=== PATIENT | male | born 1945 | race Caucasian/White ===

== ENCOUNTER 2019-06-10 05:30 | Emergency (ER) | payer MEDICARE, OTHER ==
[~2019-06-10] VITALS: Ht 180.3 cm; Wt 95.7 kg
--- NOTE | 2019-06-10 05:35 | PHYS DOC ---
Past Medical History Past Medical History: Diabetes-Type II (ABENA CASEY DO) Additional Past Surgical Histo: Rhinoplasty, Arm ORIF (ABENA CASEY DO) Additional Information: Nonsmoker Alcohol Use: None Drug Use: None (ABENA CASEY DO) Adult General Chief Complaint Chief Complaint: CHEST PAIN HPI HPI 73-year-old male presents with report of shortness of air and chest pain which started this AM. Reports sensation that he has "plegmn stuck in his throat" and can't bring it up. Reports some nasal congestion for several days. Reports really isn't cough. Reports feels very short of breath. Denies nausea or vomiting. Denies known trauma. Denies leg swelling or calf tenderness. Denies fever or chills. Cardiac risk factors for DM and family history. (ABENA CASEY DO) Review of Systems Review of Systems Constitutional: Denies fever or chills Eyes: Denies redness or eye pain HENT: Reports nasal congestion; denies sore throat Respiratory: Denies cough; reports shortness of breath Cardiovascular: Reports chest pain; denies palpitations GI: Denies abdominal pain, nausea, or vomiting : Denies dysuria or hematuria Musculoskeletal: Denies back pain or joint pain Integument: Denies rash or skin lesions Neurologic: Denies headache, focal weakness or sensory changes Complete systems were reviewed and found to be within normal limits, except as documented in this note. (ABENA CASEY DO) Current Medications Current Medications Current Medications Medications (Trade) Dose Ordered Sig/Salo Start Time Stop Time Status Last Admin Dose Admin Albuterol/ Ipratropium (Duoneb) 3 ml 1X ONCE 06/10/19 06:00 06/10/19 06:01 DC 06/10/19 06:09 3 ML Aspirin (Ayo Aspirin) 325 mg 1X ONCE 06/10/19 06:00 06/10/19 06:01 DC 06/10/19 06:16 325 MG Dexamethasone Sodium Phosphate (Decadron) 10 mg 1X ONCE 06/10/19 06:00 06/10/19 06:01 DC 06/10/19 06:16 10 MG (ESEQUIEL CASTRO MD) Allergies Allergies Allergies Coded Allergies Type Severity Reaction Last Updated Verified Penicillins Allergy Intermediate Shortness of Air 06/10/19 Yes (ESEQUIEL CASTRO MD) Physical Exam Physical Exam Constitutional: Well developed, well nourished, no acute distress, non-toxic a ppearance HENT: Normocephalic, atraumatic, oropharynx moist Eyes: PERRL, EOMI, conjunctiva normal, no discharge Neck: Normal range of motion, no tenderness, supple Cardiovascular: Heart rate normal, regular rhythm Lungs & Thorax: Bilateral breath sounds clear to auscultation, no wheezing Abdomen: Soft, no tenderness Skin: Warm, dry, no erythema, no rash Extremities: No tenderness, ROM intact, no edema Neurologic: Alert and oriented X 3, normal motor function, normal sensory fun ction, no focal deficits noted Psychologic: Affect normal, judgement normal (ABENA CASEY DO) Current Patient Data Vital Signs Vital Signs Date Time Temp Pulse Resp B/P (MAP) Pulse Ox O2 Delivery O2 Flow Rate FiO2 06/10/19 06:50 68 18 119/74 (89) 98 Room Air 06/10/19 05:38 98.0 98.0 (ESEQUIEL CASTRO MD) Lab Values Laboratory Tests Test 06/10/19 05:43 White Blood Count 4.7 x10^3/uL (4.0-11.0) Red Blood Count 4.40 x10^6/uL (4.30-5.70) Hemoglobin 14.5 g/dL (13.0-17.5) Hematocrit 41.9 % (39.0-53.0) Mean Corpuscular Volume 95 fL (79-100) Mean Corpuscular Hemoglobin 33 pg (25-35) Mean Corpuscular Hemoglobin Concent 35 g/dL (31-37) Red Cell Distribution Width 12.9 % (11.5-14.5) Platelet Count 209 x10^3/uL (140-400) Neutrophils (%) (Auto) 56 % (31-73) Lymphocytes (%) (Auto) 34 % (24-48) Monocytes (%) (Auto) 8 % (0-9) Eosinophils (%) (Auto) 1 % (0-3) Basophils (%) (Auto) 0 % (0-3) Neutrophils # (Auto) 2.7 x10^3/uL (1.8-7.7) Lymphocytes # (Auto) 1.6 x10^3/uL (1.0-4.8) Monocytes # (Auto) 0.4 x10^3/uL (0.0-1.1) Eosinophils # (Auto) 0.1 x10^3/uL (0.0-0.7) Basophils # (Auto) 0.0 x10^3/uL (0.0-0.2) Prothrombin Time 12.6 SEC (11.7-14.0) Prothrombin Time INR 1.0 (0.8-1.1) Activated Partial Thromboplast Time 28 SEC (24-38) Sodium Level 142 mmol/L (136-145) Potassium Level 3.8 mmol/L (3.5-5.1) Chloride Level 105 mmol/L (98-107) Carbon Dioxide Level 28 mmol/L (21-32) Anion Gap 9 (6-14) Blood Urea Nitrogen 20 mg/dL (8-26) Creatinine 1.4 mg/dL (0.7-1.3) H Estimated GFR (Cockcroft-Gault) 50.0 BUN/Creatinine Ratio 14 (6-20) Glucose Level 168 mg/dL (70-99) H Calcium Level 9.3 mg/dL (8.5-10.1) Magnesium Level 1.9 mg/dL (1.8-2.4) Total Bilirubin 0.5 mg/dL (0.2-1.0) Aspartate Amino Transferase (AST) 21 U/L (15-37) Alanine Aminotransferase (ALT) 38 U/L (16-63) Alkaline Phosphatase 88 U/L (46-116) Creatine Kinase 71 U/L (39-308) Creatine Kinase MB (Mass) 1.6 ng/mL (0.0-3.6) Creatine Kinase MB Relative Index % (0-4) Troponin I Quantitative < 0.017 ng/mL (0.000-0.055) EI-Flt-C-Type Natriuretic Peptide 106 pg/mL (0-124) Total Protein 6.9 g/dL (6.4-8.2) Albumin 3.3 g/dL (3.4-5.0) L Albumin/Globulin Ratio 0.9 (1.0-1.7) L Lipase 225 U/L (73-393) Laboratory Tests 06/10/19 05:43 Laboratory Tests 06/10/19 05:43 (ESEQUIEL CASTRO MD) EKG EKG @0536 Sinus bradycardia at 56bpm, NO ST elevation (ABENA CASEY DO) Radiology/Procedures Radiology/Procedures [] (ABENA CASEY DO) Radiology/Procedures PROCEDURE: CHEST PA & LATERAL EXAM: PA and Lateral Views of the Chest DATE: 06/10/2019 7:28 AM INDICATION: Foreign body sensation to throat COMPARISON: No Prior FINDINGS: The heart is not enlarged. Mediastinal and hilar contours are normal. Trachea is midline. No focal parenchymal airspace opacity. No pleural effusion or pneumothorax. Degenerative changes of the spine are seen. IMPRESSION: 1. No radiographic evidence for acute cardiopulmonary process. PROCEDURE: NECK SOFT TISSUE EXAM: AP and lateral views of the neck with soft tissue detail DATE: 06/10/2019 7:28 AM CLINICAL HISTORY: COMPARISON: None FINDINGS: Views of the neck with soft tissue detail are negative for prevertebral soft tissue swelling or gas collection. The epiglottis is delicate and the aeryepiglottic folds are not thickened. Visualized airway is patent. Negative definite retained radiopaque foreign body at the visualized airway or cervical esophagus. Calcifications of the thyroid cartilage likely age-related. Carotid calcifications are seen. Multilevel degenerative changes of the spine are seen with facet and endplate degenerative change. No spondylolisthesis. IMPRESSION: 1. No definite retained radiopaque foreign body is identified at the visualized airway or cervical esophagus. 2. Multilevel degenerative changes of cervical spine. (ESEQUIEL CASTRO MD) Course & Med Decision Making Course & Med Decision Making Patient presents with report of shortness of air and chest pain. EKG stable. Labs obtained and pending. Imaging pending. Symptomatic treatment provided. Sign out given to Dr. Castro for further evaluation and final disposition. Discussed current findings and plan with patient and family, who acknowledge understanding and agreement. (ABENA CASEY DO) Course & Med Decision Making 6:30 AM: Patient care was assumed at 6 AM shift change. Patient states that over the past 24 hours, he developed difficulty breathing, as well as a sensation of "something stuck in my throat", although he denies having eaten food that got stuck or actually having had anything actually stuck in his throat. He has not had any cough, or nasal congestion. He also states he just cannot get a full breath in, and feels out of breath, although his shortness of breath is not necessarily precipitated or exacerbated by exertion. He has not had any fevers or chills. He states that prior to arrival, he did have some right shoulder pain radiating to his right neck and jaw, but did not have ANY chest discomfort. He is quite clear about the lack of chest discomfort. He has not had any nausea, vomiting, diarrhea, or abdominal pain. Deep breathing does not seem to worsen or exacerbate his symptoms. There are no alleviating, or exacerbating factors to his symptoms. EKG shows a normal sinus rhythm at a rate of 56 bpm, normal axis, normal intervals, low voltage with no acute ischemic ST/T changes present. Patient's HEART score is a 3. PHYSICAL EXAM: CONSTITUTIONAL: Well developed, well nourished HEAD: normocephalic, atraumatic EENT: PERRL, EOMI. Conjunctivae normal color, sclerae non-icteric; moist mucous membranes. Oropharynx is unremarkable. Patient is edentulous. NECK: Supple, non-tender; no meningismus. There is no stridor. There is no appreciable laryngeal tenderness to palpation. LUNGS: Lungs CTA, breathing even and unlabored. Normal air movement. HEART: Regular rate and rhythm, no murmur CHEST: No deformity; non-tender ABDOMEN: The abdomen is soft, and non-tender, no masses or bruits. EXTREM: Normal ROM; no deformity, no calf tenderness. Normal pulses palpable in all extremities. There is no pedal edema. SKIN: No rash; no diaphoresis NEURO: Alert; normal speech and cognition; CN's grossly intact; strength grossly intact without focal deficit. BACK: No CVA TTP. 8:30 AM: The patient's condition remains stable. He is feeling steadily better after breathing treatment.I had an extensive discussion with the patient about the limitations of ER cardiac evaluation in definitively ruling out acute coronary syndrome. We discussed the possibility that diabetics could have atypical symptoms with cardiac events. We discussed limitation of the ER evaluation and a singe ED troponin in r/o AMI, and the risks involved in missed diagnosis of acute coronary syndrome including or permanent debility. I recommended overnight observation for further formal cardiac evaluation to rule out acute coronary syndrome. After expressing understanding of the limitations of ER cardiac evaluation, as well as the risks of missed diagnosis, the patient declined further cardiac evaluation at this time. The patient was mentally competent, and given opportunity to ask questions about the diagnosis and recommended plan of care. I stressed the importance of outpatient follow-up, and returning to the emergency department for new or worsening symptoms, or if the patient is agreeable to undergo further cardiac evaluation. (ESEQUIEL CASTRO MD) Dragon Disclaimer Dragon Disclaimer This electronic medical record was generated, in whole or in part, using a voice recognition dictation system. (ABENA CASEY DO) Departure Departure Impression: Primary Impression: Shortness of breath Additional Impression: Chest pain Disposition: HOME, SELF-CARE Condition: STABLE Referrals: SUJATHA BOOTH MD Patient Instructions: Chest Pain (Nonspecific), Shortness of Breath Additional Instructions: Follow-up with your primary care provider in the next 1-2 days for further evaluation. Please call cardiology office, Dr. Justice, to arrange further follow-up as well. The HEART Score for CP Pts HEART Score for Chest Pain: HEART Score for Chest Pain Response (Comments) Value History Slighlty/Non-Suspicious 0 ECG Normal 0 Age > 65 2 Risk Factors 1 or 2 Risk Factors 1 Total 3 Risk Factors: Risk Factors: DM, Current or recent (<one month) smoker, HTN, HLP, family history of CAD, obesity. Risk Scores: Score 0 - 3: 2.5% MACE over next 6 weeks - Discharge Home Score 4 - 6: 20.3% MACE over next 6 weeks - Admit for Clinical Observation Score 7 - 10: 72.7% MACE over next 6 weeks - Early Invasive Strategies (ABENA CASEY DO) HEART Score for Chest Pain: HEART Score for Chest Pain Response (Comments) Value History Slighlty/Non-Suspicious 0 ECG Normal 0 Age > 65 2 Risk Factors 1 or 2 Risk Factors 1 Troponin < Normal Limit 0 Total 3 Problem Qualifiers Additional Impression: Chest pain Chest pain type: unspecified Qualified Codes: R07.9 - Chest pain, unspecified ABENA CASEY DO Jun 10, 2019 05:35 ESEQUIEL CASTRO MD Jun 10, 2019 06:37
[2019-06-10] MEDS ORDERED: IPRATRPIUM/ALBUTEROL 0.5/2.5MG 3 ML NEBU. NEB ONE (06:00)
[2019-06-10] MEDS ORDERED: DEXAMETHASONE SOD PHOS 20 MG/5 ML VIAL. IV ONE (06:00)
[2019-06-10] MEDS ORDERED: ASPIRIN 325 MG TABLET PO ONE (06:00)
[2019-06-10 06:11] LABS: BASO % 0 % (0-3); EOS # 0.1 x10^3/uL (0.0-0.7); EOS % 1 % (0-3); HEMATOCRIT 41.9 % (39.0-53.0); HEMOGLOBIN 14.5 g/dL (13.0-17.5); LYMPH # 1.6 x10^3/uL (1.0-4.8); LYMPH % 34 % (24-48); MEAN CORPUSCULAR HEMOGLOBIN 33 pg (25-35); MEAN CORPUSCULAR HGB CONC 35 g/dL (31-37); MEAN CORPUSCULAR VOLUME 95 fL (79-100); MONO # 0.4 x10^3/uL (0.0-1.1); MONO % 8 % (0-9); NEUT # 2.7 x10^3/uL (1.8-7.7); NEUT % 56 % (31-73); PLATELET COUNT 209 x10^3/uL (140-400); RED CELL DISTRIBUTION WIDTH 12.9 % (11.5-14.5); WHITE BLOOD COUNT 4.7 x10^3/uL (4.0-11.0)
[2019-06-10 06:12] LABS: PROTHROMBIN TIME PATIENT 12.6 SEC (11.7-14.0)
[2019-06-10] MEDS ORDERED: INSU100V31 SQ (06:12)
[2019-06-10] MEDS ORDERED: LACT1CAP6 PO (06:12)
[2019-06-10] MEDS ORDERED: MAGN400C PO (06:12)
[2019-06-10] MEDS ORDERED: GARL10002 PO (06:12)
[2019-06-10] MEDS ORDERED: INSU100V13 SQ (06:12)
[2019-06-10] MEDS ORDERED: TRIA1CAP3 PO (06:12)
[2019-06-10] MEDS ORDERED: ATOR40TA59 PO (06:12)
[2019-06-10 06:13] LABS: CALCIUM 9.3 mg/dL (8.5-10.1); CREATININE 1.4 mg/dL (0.7-1.3); POTASSIUM 3.8 mmol/L (3.5-5.1)
[2019-06-10 06:19] LABS: ALBUMIN 3.3 g/dL (3.4-5.0); ALBUMIN/GLOBULIN RATIO 0.9 (1.0-1.7); MAGNESIUM 1.9 mg/dL (1.8-2.4); TOTAL BILIRUBIN 0.5 mg/dL (0.2-1.0); TOTAL PROTEIN 6.9 g/dL (6.4-8.2)
[2019-06-10 06:26] LABS: CREATINE KINASE 71 U/L (39-308)
[2019-06-10 06:50] VITALS: BP 119/74
--- NOTE | 2019-06-10 07:23 | EKG ---
[facility] [address] [place] [address] Test Date: 2019-06-10 Test Time: 05:36:47 Pat Name: RENETTA CARDENAS Department: Room: Gender: M Manager Online: : 1945 Requested By: ABENA CASEY Order Number: [id number] Reading MD: Measurements Intervals [place] Rate: 56 P: 0 [place]: 200 QRS: 36 QRSD: 84 T: 47 QT: 394 QTc: 383 Interpretive Statements SINUS RHYTHM QRS(T) CONTOUR ABNORMALITY CONSIDER ANTEROSEPTAL MYOCARDIAL DAMAGE POSSIBLY ABNORMAL ECG RI6.01 Unconfirmed report No previous ECG available for comparison
--- NOTE | 2019-06-10 07:57 | RAD ---
EXAM: PA and Lateral Views of the Chest DATE: 06/10/2019 7:28 AM INDICATION: Foreign body sensation to throat COMPARISON: No Prior FINDINGS: The heart is not enlarged. Mediastinal and hilar contours are normal. Trachea is midline. No focal parenchymal airspace opacity. No pleural effusion or pneumothorax. Degenerative changes of the spine are seen. IMPRESSION: 1. No radiographic evidence for acute cardiopulmonary process. Electronically signed by: Soham Robertson MD (06/10/2019 7:54 AM) [facility]
--- NOTE | 2019-06-10 08:12 | RAD ---
EXAM: AP and lateral views of the neck with soft tissue detail DATE: 06/10/2019 7:28 AM CLINICAL HISTORY: COMPARISON: None FINDINGS: Views of the neck with soft tissue detail are negative for prevertebral soft tissue swelling or gas collection. The epiglottis is delicate and the aeryepiglottic folds are not thickened. Visualized airway is patent. Negative definite retained radiopaque foreign body at the visualized airway or cervical esophagus. Calcifications of the thyroid cartilage likely age-related. Carotid calcifications are seen. Multilevel degenerative changes of the spine are seen with facet and endplate degenerative change. No spondylolisthesis. IMPRESSION: 1. No definite retained radiopaque foreign body is identified at the visualized airway or cervical esophagus. 2. Multilevel degenerative changes of cervical spine. Electronically signed by: Soham Robertson MD (06/10/2019 8:09 AM) [facility]
== END 2019-06-10 08:57 | disposition home or self-care (01) ==
LOC: ER 05:30
DX: R06.02 Shortness of breath (principal); R07.89 Other chest pain; R09.81 Nasal congestion; E11.9 Type 2 diabetes mellitus without complications; Z79.82 Long term (current) use of aspirin; Z88.0 Allergy status to penicillin
CPT/HCPCS: 36415; 70360; 71046; 80053; 82553; 83690; 83735; 83880; 84484; 85025; 85610; 85730; 93005; 94640; 96374; 99285; J1100; J7620

== ENCOUNTER → 2019-07-24 | Outpatient (CLI) | payer MEDICARE, OTHER ==
[~2019-07-24] MED LIST: ATOR40TA59 PO; GARL10002 PO; INSU100V13 SQ; INSU100V31 SQ; LACT1CAP6 PO; MAGN400C PO; TRIA1CAP3 PO
--- NOTE | 2019-07-26 13:53 | RAD ---
MR#: [id number] Date of Study: 07/24/2019 Ordering Physician: RYLAN MILNER, Referring Physician: RYLAN MILNER, Tech: Berto Wilson MBA, RDMS, RVT, RDCS, RTR APPROVED REPORT Patient Location: OUT-PATIENT Indications ERECTILE DYSFUNCTION Duplex Results A/PTransverseLongitudinal Mid Aorta 2.8cm1.8cm Distal Aorta 2.7cm1.1cm Rt. Common Iliac Artery2.5cm Lt. Common Iliac Artery 2.6cm Findings Grayscale images of the proximal abdominal aorta are limited. The mid and distal abdominal aorta appe ar to be calcified without any focal obstruction on cali scale images. The images are limited due to body habitus. No obvious aneurysm is noted. The measurements are as noted above. The bilateral common iliacs appear mildly aneurysmal but this is likely related to technique and measurement. Critical Notification Critical Value: No <Conclusion> 1. Limited study but no evidence of abdominal aortic aneurysm Signed by : Rylan Milner, Electronically Approved : 07/25/2019 07:48:37
--- NOTE | 2019-07-26 13:53 | RAD ---
MR#: [id number] Date of Study: 07/24/2019 Ordering Physician: RYLAN MILNER, Referring Physician: RYLAN MILNER, Tech: Berto Wilson MBA, RDMS, RVT, RDCS, RTR APPROVED REPORT Patient Location: OUT-PATIENT Indications ERECTILE DYSFUNCTION VELOCITY AND DOPPLER WAVEFORM ANALYSIS RIGHT cm/secWaveformSeverity LEFT cm/secWaveform Severity dCFA 109.0TriphasicdCFA 97.0Triphasic Prof Fem Art. 78.0TriphasicProf Fem Art. 5.0Triphasic Fem Art Prox. 92.0TriphasicFem Art Prox. 130.0Triphasic Fem Art Mid. 122.0TriphasicFem Art Mid. 102.0Triphasic Fem Art Dist. 98.0TriphasicFem Art Dist. 86.0Triphasic Pop Art(Fossa) 68.0TriphasicPop Art(AK) 89.0Triphasic CLINICAL LABORATORY AIDE Prox. 82.0TriphasicPTA Prox. 55.0Triphasic CLINICAL LABORATORY AIDE Dist. 97.0TriphasicPTA Dist. 140.0Triphasic Per Art Mid. 54.0BiphasicPer Art Mid. 114.0Triphasic ARETHA Prox. 40.0TriphasicATA Prox. 58.0Biphasic DPA 50TriphasicDPA 28Monophasic Image Findings Grayscale images of the bilateral lower extremity arterial vessels reveals mild diffuse irregularitie s without any focal high-grade obstruction. Color Doppler does not reveal any velocity acceleration Spectral waveforms are mostly triphasic and biphasic with three-vessel runoff below the knee bilatera lly. Probable moderate left peroneal and posterior tibial disease of less than 50% but otherwise no f ocal obstructive disease. No significant inflow disease at the level of the CUSTOMER SUPPORT ASSOCIATE. Critical Notification Critical Value: No <Conclusion> 1. No high grade focal disease bilaterally. Signed by : Rylan Milner, Electronically Approved : 07/25/2019 07:41:01
== END | disposition home or self-care (01) ==
LOC: US 11:51
PROVIDERS: ATTEND Internal Medicine Cardiovascular Disease
DX: N52.9 Male erectile dysfunction, unspecified (principal); I10 Essential (primary) hypertension
CPT/HCPCS: 76770; 93925

== ENCOUNTER 2019-11-30 20:06 | Inpatient (IN) | payer MEDICARE, OTHER ==
[~2019-11-30] VITALS: Ht 180.3 cm; Wt 105.2 kg
[2019-11-30] MEDS ORDERED: FAMOTIDINE 20 MG/2 ML VIAL IVP ONE (21:00)
[2019-11-30] MEDS ORDERED: ONDANSETRON PF 4 MG/2 ML VIAL. IVP ONE (21:00)
[2019-11-30 21:02] LABS: BASO % 0 % (0-3); EOS % 0 % (0-3); HEMATOCRIT 39.2 % (39.0-53.0); HEMOGLOBIN 13.3 g/dL (13.0-17.5); LYMPH # 0.3 x10^3/uL (1.0-4.8); LYMPH % 5 % (24-48); MEAN CORPUSCULAR HEMOGLOBIN 32 pg (25-35); MEAN CORPUSCULAR HGB CONC 34 g/dL (31-37); MEAN CORPUSCULAR VOLUME 94 fL (79-100); MONO % 1 % (0-9); NEUT # 4.5 x10^3/uL (1.8-7.7); NEUT % 94 % (31-73); PLATELET COUNT 146 x10^3/uL (140-400); RED BLOOD COUNT 4.15 x10^6/uL (4.30-5.70); RED CELL DISTRIBUTION WIDTH 12.9 % (11.5-14.5); WHITE BLOOD COUNT 4.8 x10^3/uL (4.0-11.0)
[2019-11-30 21:16] LABS: CALCIUM 8.8 mg/dL (8.5-10.1); CREATININE 1.1 mg/dL (0.7-1.3); GFR 65.8
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
[2019-11-30 21:22] LABS: ALBUMIN 3.2 g/dL (3.4-5.0); ALBUMIN/GLOBULIN RATIO 1.1 (1.0-1.7); TOTAL BILIRUBIN 1.1 mg/dL (0.2-1.0); TOTAL PROTEIN 6.2 g/dL (6.4-8.2)
--- NOTE | 2019-11-30 21:23 | RAD ---
PORTABLE CHEST 1V INDICATION: Altered mental status. COMPARISON STUDY: 06/10/2019. FINDINGS: Lungs: Normal lung volume. No pulmonary mass or consolidation. The tracheobronchial tree and hilar structures are normal. Pleura: No pleural effusion or pneumothorax. Heart and Mediastinum: The cardiomediastinal silhouette is normal. The great vessels of the thorax are normal. IMPRESSION: No acute cardiopulmonary process. Electronically signed by: Lisandro Lawrence MD (11/30/2019 9:21 PM) [facility]
[2019-11-30 21:25] LABS: % BANDS 12 % (0-9); % LYMPHS 7 % (24-48); % MONOS 1 % (0-10); % SEGS 80 % (35-66)
[2019-11-30 21:26] LABS: PLT ESTIMATE ADEQUATE (ADEQUATE); TOXIC VACUOLATION PRESENT
[2019-11-30] MEDS: IV NORMAL SALINE 1000ML BAG 1,000 ML IV SCH ×2 (21:30→23:00)
[2019-11-30 21:35] LABS: CREATINE KINASE 74 U/L (39-308)
[2019-11-30] MEDS ORDERED: ACETAMINOPHEN 325 MG TABLET. PO PRN (22:00)
[2019-11-30] MEDS ORDERED: ONDANSETRON PF 4 MG/2 ML VIAL. IV PRN (22:00)
[2019-11-30 22:02] LABS: INFLUENZA A PATIENT NEGATIVE (NEGATIVE); INFLUENZA B PATIENT NEGATIVE (NEGATIVE)
[2019-11-30] MEDS ORDERED: IV NORMAL SALINE 1000ML BAG 1,000 ML IV ONE (22:30)
[2019-11-30] MEDS ORDERED: CONTRAST GIVEN. MC PRN (23:30)
[2019-11-30] MEDS ORDERED: IOHEXOL 300 MG/ML 100ML VIAL. IV ONE (23:45)
[2019-12-01] VITALS (7 sets, daily range): BP systolic 91–148; BP diastolic 56–83
--- NOTE | 2019-12-01 00:03 | RAD ---
CT SCAN OF THE ABDOMEN AND PELVIS WITH IV CONTRAST. History: Abdominal pain Comparison:None. Procedure: Contiguous axial images of the abdomen and pelvis were performed after the administration of 75 cc of Omni 300 IV contrast. Oral contrast: No. Findings: Liver: Unremarkable Spleen: Unremarkable Pancreas: Unremarkable Adrenal Glands: Unremarkable Kidneys: There is a 4 similar simple cyst arising posteriorly from the mid right kidney. There is no mass or lymphadenopathy. There is no free air. There is no free fluid. The urinary bladder not fully distended and demonstrates mild wall thickening. The appendix is normal. There is bilateral fat-containing inguinal canal hernias. There is fat within the inguinal canal hernias. Impression: 1. Mild wall thickening of the urinary bladder could be secondary to hypertrophy. 2. No acute findings. PQRS Compliance Statement: One or more of the following individualized dose reduction techniques were utilized for this examination: 1. Automated exposure control 2. Adjustment of the mA and/or kV according to patient size 3. Use of iterative reconstruction technique Electronically signed by: Nikolas Tomas III, MD (12/01/2019 12:00 AM) [id number]
[2019-12-01] MEDS: IV NORMAL SALINE 1000ML BAG 1,000 ML IV SCH (04:00)
[2019-12-01 05:16] LABS: BASO % 0 % (0-3); EOS % 0 % (0-3); HEMATOCRIT 36.4 % (39.0-53.0); HEMOGLOBIN 12.1 g/dL (13.0-17.5); LYMPH # 0.3 x10^3/uL (1.0-4.8); LYMPH % 3 % (24-48); MEAN CORPUSCULAR HEMOGLOBIN 32 pg (25-35); MEAN CORPUSCULAR HGB CONC 33 g/dL (31-37); MEAN CORPUSCULAR VOLUME 97 fL (79-100); MONO # 0.7 x10^3/uL (0.0-1.1); MONO % 6 % (0-9); NEUT # 11.4 x10^3/uL (1.8-7.7); NEUT % 92 % (31-73); PLATELET COUNT 145 x10^3/uL (140-400); RED BLOOD COUNT 3.76 x10^6/uL (4.30-5.70); RED CELL DISTRIBUTION WIDTH 13.2 % (11.5-14.5); WHITE BLOOD COUNT 12.5 x10^3/uL (4.0-11.0)
[2019-12-01 05:23] LABS: CREATININE 1.3 mg/dL (0.7-1.3); GFR 54.3; POTASSIUM 4.2 mmol/L (3.5-5.1)
[2019-12-01] MEDS ORDERED: TADA5TAB PO (05:41)
[2019-12-01] MEDS ORDERED: LISI-338 PO (05:41)
[2019-12-01] MEDS ORDERED: LIRA0.6P2 SQ (05:41)
[2019-12-01] MEDS ORDERED: CLOT15CR4 TP (05:41)
[2019-12-01] MEDS ORDERED: TIMO10DR5 EACHEYE (05:41)
[2019-12-01] MEDS ORDERED: TRIA15OI TP (05:41)
[2019-12-01] MEDS ORDERED: ATOR20TA58 PO (05:41)
[2019-12-01] MEDS ORDERED: CALC500T30 PO (05:41)
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
[2019-12-01] MEDS ORDERED: MAGNESIUM SULFATE 2GM 50 ML IV ONE (11:30)
--- NOTE | 2019-12-01 12:27 | NUR ---
Positive Blood culture: Gram Negative Rods. 2 sets drawn. 2 of 4 Positive. Both Anaerobic bottles Positive..
[2019-12-01] MEDS ORDERED: VANCOMYCIN PER PHARMACY MC PRN (12:45)
[2019-12-01] MEDS ORDERED: VANCOMYCIN 2 GM in IV NORMAL SALINE 500ML BAG 500 ML IV ONE (13:00)
--- NOTE | 2019-12-01 13:11 | PDOC ---
Infectious Disease Note Vital Sign Vital Signs Vital Signs Date Time Temp Pulse Resp B/P (MAP) Pulse Ox O2 Delivery O2 Flow Rate FiO2 12/01/19 11:00 97.9 80 19 138/68 (91) 96 Room Air 97.9 Labs Lab Laboratory Tests Test 11/30/19 20:16 11/30/19 21:25 12/01/19 00:30 12/01/19 04:00 White Blood Count 4.8 x10^3/uL (4.0-11.0) 12.5 x10^3/uL (4.0-11.0) Red Blood Count 4.15 x10^6/uL (4.30-5.70) 3.76 x10^6/uL (4.30-5.70) Hemoglobin 13.3 g/dL (13.0-17.5) 12.1 g/dL (13.0-17.5) Hematocrit 39.2 % (39.0-53.0) 36.4 % (39.0-53.0) Mean Corpuscular Volume 94 fL (79-100) 97 fL (79-100) Mean Corpuscular Hemoglobin 32 pg (25-35) 32 pg (25-35) Mean Corpuscular Hemoglobin Concent 34 g/dL (31-37) 33 g/dL (31-37) Red Cell Distribution Width 12.9 % (11.5-14.5) 13.2 % (11.5-14.5) Platelet Count 146 x10^3/uL (140-400) 145 x10^3/uL (140-400) Neutrophils (%) (Auto) 94 % (31-73) 92 % (31-73) Lymphocytes (%) (Auto) 5 % (24-48) 3 % (24-48) Monocytes (%) (Auto) 1 % (0-9) 6 % (0-9) Eosinophils (%) (Auto) 0 % (0-3) 0 % (0-3) Basophils (%) (Auto) 0 % (0-3) 0 % (0-3) Neutrophils # (Auto) 4.5 x10^3/uL (1.8-7.7) 11.4 x10^3/uL (1.8-7.7) Lymphocytes # (Auto) 0.3 x10^3/uL (1.0-4.8) 0.3 x10^3/uL (1.0-4.8) Monocytes # (Auto) 0.0 x10^3/uL (0.0-1.1) 0.7 x10^3/uL (0.0-1.1) Eosinophils # (Auto) 0.0 x10^3/uL (0.0-0.7) 0.0 x10^3/uL (0.0-0.7) Basophils # (Auto) 0.0 x10^3/uL (0.0-0.2) 0.0 x10^3/uL (0.0-0.2) Segmented Neutrophils % 80 % (35-66) Band Neutrophils % 12 % (0-9) Lymphocytes % 7 % (24-48) Monocytes % 1 % (0-10) Toxic Vacuolation Present Platelet Estimate Adequate (ADEQUATE) Prothrombin Time 14.0 SEC (11.7-14.0) Prothromb Time International Ratio 1.1 (0.8-1.1) Activated Partial Thromboplast Time 25 SEC (24-38) Sodium Level 139 mmol/L (136-145) 140 mmol/L (136-145) Potassium Level 4.0 mmol/L (3.5-5.1) 4.2 mmol/L (3.5-5.1) Chloride Level 104 mmol/L (98-107) 106 mmol/L (98-107) Carbon Dioxide Level 25 mmol/L (21-32) 24 mmol/L (21-32) Anion Gap 10 (6-14) 10 (6-14) Blood Urea Nitrogen 16 mg/dL (8-26) 19 mg/dL (8-26) Creatinine 1.1 mg/dL (0.7-1.3) 1.3 mg/dL (0.7-1.3) Estimated GFR (Cockcroft-Gault) 65.8 54.3 BUN/Creatinine Ratio 15 (6-20) Glucose Level 192 mg/dL (70-99) 215 mg/dL (70-99) Lactic Acid Level 2.2 mmol/L (0.4-2.0) 2.6 mmol/L (0.4-2.0) Calcium Level 8.8 mg/dL (8.5-10.1) 8.0 mg/dL (8.5-10.1) Magnesium Level 1.6 mg/dL (1.8-2.4) Total Bilirubin 1.1 mg/dL (0.2-1.0) Aspartate Amino Transf (AST/SGOT) 19 U/L (15-37) Alanine Aminotransferase (ALT/SGPT) 25 U/L (16-63) Alkaline Phosphatase 97 U/L (46-116) Creatine Kinase 74 U/L (39-308) Creatine Kinase MB (Mass) 0.8 ng/mL (0.0-3.6) Creatine Kinase MB Relative Index % (0-4) Troponin I Quantitative < 0.017 ng/mL (0.000-0.055) IJ-Upu-B-Type Natriuretic Peptide 259 pg/mL (0-124) Total Protein 6.2 g/dL (6.4-8.2) Albumin 3.2 g/dL (3.4-5.0) Albumin/Globulin Ratio 1.1 (1.0-1.7) Lipase 86 U/L (73-393) Procalcitonin 0.45 ng/mL (0.00-0.10) 9.80 ng/mL (0.00-0.10) Thyroid Stimulating Hormone (TSH) 0.664 uIU/mL (0.358-3.74) Influenza Type A Antigen Negative (NEGATIVE) Influenza Type B Antigen Negative (NEGATIVE) Test 12/01/19 07:32 12/01/19 11:30 12/01/19 11:52 Glucose (Fingerstick) 154 mg/dL (70-99) 173 mg/dL (70-99) Lactic Acid Level 1.2 mmol/L (0.4-2.0) Micro Microbiology 11/30/19 Blood Culture - Final, Complete Objective Assessment GNR sepsis POA Abdominal pain. Leukocytosis Abx allergy PCN. unknown reaction Lactic acidosis Acute encephalopathy - improved Diabetes II Morbid obesity Hypertension Skin cancer Cat exposure Plan Plan of Care d/c vancomycin change levaquin to Cefepime Await GNR ID and susceptibilities Repeat CBC in am UA been ordered D/w nursing Thank you Attending Co-Sign The patient was seen and interviewed as well as examined at the bedside. The chart was reviewed. The case was discussed. Agree with the plan of care. ONIEL LILLY APRN Dec 01, 2019 13:11 NANCY MEZA MD Dec 01, 2019 13:18
[2019-12-01] MEDS: CEFEPIME HCL IV Push 1 GM VIAL. IVP SCH ×2 (13:30→21:12)
--- NOTE | 2019-12-01 13:52 | CONS ---
DATE OF CONSULTATION: 12/01/2019 REFERRING PHYSICIAN: Bakari Douglas MD REASON FOR CONSULTATION: Positive blood cultures. HISTORY OF PRESENT ILLNESS: This patient is a 74-year-old male with a past medical history of morbid obesity, skin cancer, and type 2 diabetes, who presented to the ER with abdominal pain, nausea, and altered mental status. He recalls feeling suddenly hot, could not walk and his glucose level was found to be low. On arrival to the ER, he was afebrile with a normal WBC count. Lactic acid was 2.2 and glucose 192. Abdominal/pelvis CT showed mild wall thickening of the urinary bladder, could be secondary to hypertrophy. No acute findings. Urinalysis has been ordered. Blood cultures have since returned with Gram-negative rods in 2 of 4 bottles, hence ID consult. The patient says he has a history of skin cancer and had a few lesions, burn on his scalp area recently. He denies fevers or chills. He has some nasal congestion. Denies headache, sore throat. Denies cough, shortness of air, or chest discomfort. He has been a little bit constipated, but had a bowel movement earlier. He denies dysuria, frequency, or straining. He is currently living with his girlfriend. He has had a number of cats and is now down to 7. He says they have licked his wound. He denies antibiotic use or hospitalizations within the last several months. PAST MEDICAL HISTORY: Diabetes type 2, skin cancer, hypertension, morbid obesity, hyperlipidemia. PAST SURGICAL HISTORY: Rhinoplasty and open reduction and internal fixation of arm. FAMILY HISTORY: Obesity. ALLERGIES: PENICILLIN, REACTION UNKNOWN. HE DOES NOT RECALL HAVING TAKEN AMOXICILLIN, AUGMENTIN, OR CEPHALEXIN. MEDICATIONS: Vancomycin, levofloxacin, magnesium sulfate, Pepcid, ondansetron, timolol, acetaminophen, topical triamcinolone. REVIEW OF SYSTEMS: Per HPI, otherwise all other review of systems is negative. PHYSICAL EXAMINATION: VITAL SIGNS: Temperature is 97.9, blood pressure 138/68, heart rate 80, respiratory rate 19, pulse oximetry is 96%. BMI 32. GENERAL: The patient is propped up in bed, alert, in no apparent distress. HEENT: Pupils equally round and reactive. Normal conjunctivae. Oropharynx pink and moist. NECK: Supple. LUNGS: Clear to auscultation. HEART: S1, S2. ABDOMEN: Morbidly obese, soft, nontender with bowel sounds present. EXTREMITIES: No gross edema or cyanosis. SKIN: Warm to touch without signs of rash. NEUROLOGIC: Alert and oriented x 3. LABORATORY DATA: Today's WBC 12.5 from 4.8 on admission, hemoglobin 12.1, platelets 145,000. Creatinine is 1.3, BUN 19. Electrolytes unremarkable. Glucose 215. Lactic acid 1.2 from 2.6. Total bilirubin 1.1. AST 19, ALT 25. Troponin less than 0.017, albumin 3.2. Procalcitonin 0.45. TSH 0.664. Influenza screen negative. Abdominal/pelvis CT per HPI. Chest x-ray showed no acute cardiopulmonary process. Head CT showed mild atrophy and chronic microangiopathic white matter change. Blood cultures show Gram-negative rods, 2 of 4 bottles. ASSESSMENT: 1. Gram-negative francoise sepsis present on admission. 2. Abdominal pain. 3. Leukocytosis. 4. Antibiotic allergy to penicillin, reaction unknown. 5. Lactic acidosis. 6. Acute encephalopathy, improved. 7. Diabetes type 2. 8. Morbid obesity. 9. Hypertension. 10. Skin cancer. 11. Cat exposure. PLAN: Recommend changing levofloxacin to cefepime and discontinue the vancomycin. The source of the Gram-negative rods may be from urine or possibly from cat exposure for which he often scratched. Urinalysis has been ordered. Repeat CBC in the morning. We will continue to follow along. Thank you, Dr. Douglas, for asking us to participate in this patient's care. Should you have further questions or concerns, please call. The patient is seen and examined and plan of care implemented by Dr. Jim Meza. JIM MEZA MD DR: RAMONA/javi JOB#: [id number] / [id number]
[2019-12-01] MEDS: TIMOLOL 0.5% OPHTH SOLUTION 5ML BOTTLE. OU SCH (14:03)
[2019-12-01] MEDS: TRIAMCINOLONE ACETONIDE 0.1% TOPICAL OINTMENT 15GM TUBE. TP SCH ×2 (14:04→21:11)
[2019-12-01] MEDS: MAGNESIUM OXIDE 400 MG TABLET PO SCH (14:04)
--- NOTE | 2019-12-01 15:02 | EKG ---
[facility] [address] [place] [address] Test Date: 2019-11-30 Test Time: 20:15:44 Pat Name: RENETTA CARDENAS Department: Room: Gender: M Home Manager: : [id number] Requested By: RODOLFO ORTIZ Order Number: [id number] Reading MD: Measurements Intervals [place] Rate: 117 P: -30 MN: 138 QRS: 23 QRSD: 92 T: 24 QT: 310 QTc: 436 Interpretive Statements SINUS TACHYCARDIA QRS(T) CONTOUR ABNORMALITY CANNOT RULE OUT ANTEROSEPTAL MYOCARDIAL DAMAGE BORDERLINE ECG No previous ECG available for comparison
--- NOTE | 2019-12-01 16:40 | NUR ---
Pt reported to staff that he had a fall in the bathroom of his room. Pt states he put on the call light and waited a long time. Pt ambulated to br unsupervised, urinated on his clothes on the way to the br. Pt went to sit on the stool and "missed it". States he fell to his right knee, hit the right side of his head against the door. On initial assessment, pt stated he was fine. On reassessment, pt states his neck hurts. RN maintenance and custodian supervisor notified. Dr. Douglas notified, order for tylenol po 650 mg tab q6hrs for pain. May use heating pad as needed. Pt states he did not want either at the time. Will continue to monitor.
[2019-12-01] MEDS: INSULIN LISPRO 300 UNITS/3 ML VIAL. SQ SCH (17:00)
[2019-12-01] MEDS ORDERED: DEXTROSE 50% 25 GM / 50ML DISP.SYRIN. IV PRN (17:00)
[2019-12-01] MEDS ORDERED: IV DEXTROSE 5% 250 ML BAG. IV PRN (17:00)
[2019-12-01] MEDS: LACTOBACILLUS RHAMNOSUS GG 1 CAPSULE. PO SCH (21:12)
[2019-12-01] MEDS: INSULIN GLARGINE SYRINGE. SQ SCH (21:22)
[2019-12-02] MEDS: ACETAMINOPHEN 325 MG TABLET. PO PRN (00:53)
[2019-12-02 03:00] VITALS: BP 120/66
[2019-12-02 05:25] LABS: BASO % 0 % (0-3); EOS % 0 % (0-3); HEMATOCRIT 35.7 % (39.0-53.0); HEMOGLOBIN 12.1 g/dL (13.0-17.5); LYMPH # 1.1 x10^3/uL (1.0-4.8); LYMPH % 13 % (24-48); MEAN CORPUSCULAR HEMOGLOBIN 32 pg (25-35); MEAN CORPUSCULAR HGB CONC 34 g/dL (31-37); MEAN CORPUSCULAR VOLUME 95 fL (79-100); MONO # 0.7 x10^3/uL (0.0-1.1); MONO % 9 % (0-9); NEUT # 6.8 x10^3/uL (1.8-7.7); NEUT % 78 % (31-73); PLATELET COUNT 121 x10^3/uL (140-400); RED BLOOD COUNT 3.75 x10^6/uL (4.30-5.70); RED CELL DISTRIBUTION WIDTH 13.2 % (11.5-14.5); WHITE BLOOD COUNT 8.7 x10^3/uL (4.0-11.0)
[2019-12-02 07:00] VITALS: BP 133/74
[2019-12-02] MEDS: INSULIN LISPRO 300 UNITS/3 ML VIAL. SQ SCH ×3 (07:56→17:13)
[2019-12-02] MEDS: TRIAMCINOLONE ACETONIDE 0.1% TOPICAL OINTMENT 15GM TUBE. TP SCH ×2 (08:33→21:00)
[2019-12-02] MEDS: LACTOBACILLUS RHAMNOSUS GG 1 CAPSULE. PO SCH ×2 (08:33→20:56)
[2019-12-02] MEDS: MAGNESIUM OXIDE 400 MG TABLET PO SCH (08:33)
--- NOTE | 2019-12-02 09:33 | PDOC ---
Infectious Disease Note Subjective: Subjective pt without complaints Vital Signs: Vital Signs Vital Signs Date Time Temp Pulse Resp B/P (MAP) Pulse Ox O2 Delivery O2 Flow Rate FiO2 12/02/19 07:00 98.1 67 17 133/74 (93) 95 Room Air 98.1 Physical Exam: PHYSICAL EXAM GENERAL: The patient is propped up in bed, alert, in no apparent distress. HEENT: Pupils equally round and reactive. Normal conjunctivae. Oropharynx pink and moist. NECK: Supple. LUNGS: Clear to auscultation. HEART: S1, S2. ABDOMEN: Morbidly obese, soft, nontender with bowel sounds present. EXTREMITIES: No gross edema or cyanosis. SKIN: Warm to touch without signs of rash.scalp lesions stable NEUROLOGIC: Alert and oriented x 3. Medications: Inpatient Meds: Current Medications Medications (Trade) Dose Ordered Sig/Salo Start Time Stop Time Status Last Admin Dose Admin Acetaminophen (Tylenol) 650 mg PRN Q6HRS PRN 12/02/19 00:45 12/02/19 00:53 650 MG Cefepime HCl (Maxipime) 1 gm Q12HR 12/01/19 13:30 12/01/19 21:12 1 GM Dextrose (Dextrose 50%-Water Syringe) 12.5 gm PRN Q15MIN PRN 12/01/19 17:00 Dextrose (Iv Dextrose 5%) 250 ml PRN Q15MIN PRN 12/01/19 17:00 Famotidine (Pepcid Vial) 20 mg 1X ONCE 11/30/19 21:00 11/30/19 21:01 DC 11/30/19 21:30 20 MG Info (CONTRAST GIVEN -- Rx MONITORING) 1 each PRN DAILY PRN 11/30/19 23:30 12/02/19 23:29 Insulin Glargine (Lantus Syringe) 24 unit QHS 12/01/19 21:00 12/01/19 21:22 24 UNIT Insulin Human Lispro (HumaLOG) 0-9 UNITS TIDWMEALS 12/01/19 17:00 Iohexol (Omnipaque 300 Mg/ml) 75 ml 1X ONCE 11/30/19 23:45 11/30/19 23:46 DC 11/30/19 23:52 75 ML Lactobacillus Rhamnosus (Culturelle) 1 cap BID 12/01/19 21:00 12/02/19 08:33 1 CAP Levofloxacin/ Dextrose 100 ml @ 100 mls/hr Q24H 12/01/19 23:00 12/01/19 13:11 DC Magnesium Oxide (Magnesium Oxide) 400 mg DAILY 12/01/19 11:00 12/02/19 08:33 400 MG Magnesium Sulfate 50 ml @ 25 mls/hr 1X ONCE 12/01/19 11:30 12/01/19 13:29 DC 12/01/19 11:30 25 MLS/HR Ondansetron HCl (Zofran) 4 mg PRN Q8HRS PRN 11/30/19 22:00 12/01/19 21:59 DC Sodium Chloride 1,000 ml @ 125 mls/hr 1X ONCE 11/30/19 22:30 12/01/19 06:29 DC 11/30/19 22:30 125 MLS/HR Timolol Maleate (Timoptic 0.5% [facility]) 1 drop DAILY 12/01/19 12:00 12/01/19 14:03 1 DROP Triamcinolone Acetonide (Kenalog 0.1%) 1 thuy BID 12/01/19 12:00 12/02/19 08:33 1 THUY Vancomycin HCl (Vanco Per Pharmacy) 1 each PRN DAILY PRN 12/01/19 12:45 12/01/19 13:04 DC Vancomycin HCl 2 gm/Sodium Chloride 500 ml @ 250 mls/hr 1X ONCE 12/01/19 13:00 12/01/19 13:06 DC Labs: Lab Laboratory Tests Test 12/01/19 11:30 12/01/19 11:52 12/01/19 16:22 12/01/19 20:47 Lactic Acid Level 1.2 mmol/L (0.4-2.0) Glucose (Fingerstick) 173 mg/dL (70-99) 152 mg/dL (70-99) 201 mg/dL (70-99) Test 12/02/19 04:15 White Blood Count 8.7 x10^3/uL (4.0-11.0) Red Blood Count 3.75 x10^6/uL (4.30-5.70) Hemoglobin 12.1 g/dL (13.0-17.5) Hematocrit 35.7 % (39.0-53.0) Mean Corpuscular Volume 95 fL (79-100) Mean Corpuscular Hemoglobin 32 pg (25-35) Mean Corpuscular Hemoglobin Concent 34 g/dL (31-37) Red Cell Distribution Width 13.2 % (11.5-14.5) Platelet Count 121 x10^3/uL (140-400) Neutrophils (%) (Auto) 78 % (31-73) Lymphocytes (%) (Auto) 13 % (24-48) Monocytes (%) (Auto) 9 % (0-9) Eosinophils (%) (Auto) 0 % (0-3) Basophils (%) (Auto) 0 % (0-3) Neutrophils # (Auto) 6.8 x10^3/uL (1.8-7.7) Lymphocytes # (Auto) 1.1 x10^3/uL (1.0-4.8) Monocytes # (Auto) 0.7 x10^3/uL (0.0-1.1) Eosinophils # (Auto) 0.0 x10^3/uL (0.0-0.7) Basophils # (Auto) 0.0 x10^3/uL (0.0-0.2) Objective: Assessment: 1. Gram-negative francoise sepsis present on admission.ID source pending 2. Abdominal pain. 3. Leukocytosis.improving 4. Antibiotic allergy to penicillin, reaction unknown. 5. Lactic acidosis. 6. Acute encephalopathy, improved. 7. Diabetes type 2. 8. Morbid obesity. 9. Hypertension. 10. Skin cancer. 11. Cat exposure. 2. Thrombocytopenia Plan: Plan of Care Continue Cefepime Await GNR ID and susceptibilities in BC UA with uc if not sent already F/U repeat BC from am d/w KENDRA MORAN MD Dec 02, 2019 09:33
[2019-12-02] MEDS: TIMOLOL 0.5% OPHTH SOLUTION 5ML BOTTLE. OU SCH (09:47)
[2019-12-02] MEDS: CEFEPIME HCL IV Push 1 GM VIAL. IVP SCH ×2 (09:47→20:56)
[2019-12-02 10:50] VITALS: BP 135/68
[2019-12-02 11:32] LABS: BILIRUBIN,URINE NEGATIVE (NEG); CLARITY,URINE CLEAR; COLOR,URINE YELLOW; NITRITE,URINE NEGATIVE (NEG); PROTEIN,URINE NEGATIVE (NEG-TRACE); UROBILINOGEN,URINE 0.2 mg/dL (0.2 mg/dL)
[2019-12-02 11:43] LABS: BACTERIA,URINE FEW /HPF (0-FEW); RBC,URINE 0 /HPF (0-2); SQUAMOUS EPITHELIAL CELL,UR OCC /LPF
[2019-12-02 11:49] LABS: BARBITURATES NEG (NEG); BENZODIAZEPINES NEG (NEG); CANNABINOIDS NEG (NEG); COCAINE NEG (NEG); METHADONE NEG (NEG); OPIATES NEG (NEG); PHENCYCLIDINE NEG (NEG)
[2019-12-02 11:50] LABS: AMPHETAMINE/METHAMPHETAMINE NEG (NEG)
--- NOTE | 2019-12-02 13:36 | NUR ---
SW following. Discussed with RN, pt is from home with girlfriend. Currently on IV cefepime. PT/OT ordered, urine sent to check for UTI. SW will continue to follow.
--- NOTE | 2019-12-02 14:00 | PDOC ---
PROGRESS NOTES Chief Complaint Chief Complaint ASSESSMENT Gram-negative francoise sepsis present on admission Leukocytosis Antibiotic allergy to penicillin, reaction unknown. Lactic acidosis. Acute encephalopathy, RESOLVing Diabetes type 2. Morbid obesity. Hypertension. Skin cancer. Cat exposure. Thrombocytopenia PLAN continue cefepime apprec ID follow cultures follow repeat cultures dvt ppx prn ativan for agitation History of Present Illness History of Present Illness agitated overnight and given ativan and haldol. VSS Vitals Vitals Vital Signs Date Time Temp Pulse Resp B/P (MAP) Pulse Ox O2 Delivery O2 Flow Rate FiO2 12/02/19 10:50 98.0 69 17 135/68 (90) 95 Room Air 98.0 Physical Exam Physical Exam GENERAL: The patient is propped up in bed, alert, in no apparent distress. HEENT: Pupils equally round and reactive. Normal conjunctivae. Oropharynx pink and moist. NECK: Supple. LUNGS: Clear to auscultation. HEART: S1, S2. ABDOMEN: Morbidly obese, soft, nontender with bowel sounds present. EXTREMITIES: No gross edema or cyanosis. SKIN: Warm to touch without signs of rash.scalp lesions stable NEUROLOGIC: Alert and oriented x 3. General: Alert, Oriented X3, Cooperative, No acute distress Abdomen: Normal bowel sounds, Soft, Other (OBESE) Extremities: No clubbing, No cyanosis, Other (5 BX SITES ON SCALP) Labs LABS Laboratory Tests Test 12/01/19 16:22 12/01/19 20:47 12/02/19 04:15 12/02/19 11:15 Glucose (Fingerstick) 152 mg/dL (70-99) 201 mg/dL (70-99) White Blood Count 8.7 x10^3/uL (4.0-11.0) Red Blood Count 3.75 x10^6/uL (4.30-5.70) Hemoglobin 12.1 g/dL (13.0-17.5) Hematocrit 35.7 % (39.0-53.0) Mean Corpuscular Volume 95 fL (79-100) Mean Corpuscular Hemoglobin 32 pg (25-35) Mean Corpuscular Hemoglobin Concent 34 g/dL (31-37) Red Cell Distribution Width 13.2 % (11.5-14.5) Platelet Count 121 x10^3/uL (140-400) Neutrophils (%) (Auto) 78 % (31-73) Lymphocytes (%) (Auto) 13 % (24-48) Monocytes (%) (Auto) 9 % (0-9) Eosinophils (%) (Auto) 0 % (0-3) Basophils (%) (Auto) 0 % (0-3) Neutrophils # (Auto) 6.8 x10^3/uL (1.8-7.7) Lymphocytes # (Auto) 1.1 x10^3/uL (1.0-4.8) Monocytes # (Auto) 0.7 x10^3/uL (0.0-1.1) Eosinophils # (Auto) 0.0 x10^3/uL (0.0-0.7) Basophils # (Auto) 0.0 x10^3/uL (0.0-0.2) Urine Collection Type Unknown Urine Color Yellow Urine Clarity Clear Urine pH 5.0 Urine Specific [place] 1.020 Urine Protein Negative mg/dL (NEG-TRACE) Urine Glucose (UA) 250 mg/dL (NEG) Urine Ketones (Stick) Negative mg/dL (NEG) Urine Blood Negative (NEG) Urine Nitrite Negative (NEG) Urine Bilirubin Negative (NEG) Urine Urobilinogen Dipstick 0.2 mg/dL (0.2 mg/dL) Urine Leukocyte Esterase Trace (NEG) Urine RBC 0 /HPF (0-2) Urine WBC 5-10 /HPF (0-4) Urine Squamous Epithelial Cells Occ /LPF Urine Bacteria Few /HPF (0-FEW) Urine Mucus Slight /LPF Urine Opiates Screen Neg (NEG) Urine Methadone Screen Neg (NEG) Urine Barbiturates Neg (NEG) Urine Phencyclidine Screen Neg (NEG) Urine Amphetamine/Methamphetamine Neg (NEG) Urine Benzodiazepines Screen Neg (NEG) Urine Cocaine Screen Neg (NEG) Urine Cannabinoids Screen Neg (NEG) Urine Ethyl Alcohol Neg (NEG) Assessment and Plan Assessmemt and Plan Problems Medical Problems: (1) Altered mental status Status: Acute (2) Elevated lactic acid level Status: Acute Comment Review of Relevant I have reviewed the following items rudy (where applicable) has been applied. Labs Laboratory Tests Test 11/30/19 20:16 11/30/19 21:25 12/01/19 00:30 12/01/19 04:00 White Blood Count 4.8 x10^3/uL (4.0-11.0) 12.5 x10^3/uL (4.0-11.0) Red Blood Count 4.15 x10^6/uL (4.30-5.70) 3.76 x10^6/uL (4.30-5.70) Hemoglobin 13.3 g/dL (13.0-17.5) 12.1 g/dL (13.0-17.5) Hematocrit 39.2 % (39.0-53.0) 36.4 % (39.0-53.0) Mean Corpuscular Volume 94 fL (79-100) 97 fL (79-100) Mean Corpuscular Hemoglobin 32 pg (25-35) 32 pg (25-35) Mean Corpuscular Hemoglobin Concent 34 g/dL (31-37) 33 g/dL (31-37) Red Cell Distribution Width 12.9 % (11.5-14.5) 13.2 % (11.5-14.5) Platelet Count 146 x10^3/uL (140-400) 145 x10^3/uL (140-400) Neutrophils (%) (Auto) 94 % (31-73) 92 % (31-73) Lymphocytes (%) (Auto) 5 % (24-48) 3 % (24-48) Monocytes (%) (Auto) 1 % (0-9) 6 % (0-9) Eosinophils (%) (Auto) 0 % (0-3) 0 % (0-3) Basophils (%) (Auto) 0 % (0-3) 0 % (0-3) Neutrophils # (Auto) 4.5 x10^3/uL (1.8-7.7) 11.4 x10^3/uL (1.8-7.7) Lymphocytes # (Auto) 0.3 x10^3/uL (1.0-4.8) 0.3 x10^3/uL (1.0-4.8) Monocytes # (Auto) 0.0 x10^3/uL (0.0-1.1) 0.7 x10^3/uL (0.0-1.1) Eosinophils # (Auto) 0.0 x10^3/uL (0.0-0.7) 0.0 x10^3/uL (0.0-0.7) Basophils # (Auto) 0.0 x10^3/uL (0.0-0.2) 0.0 x10^3/uL (0.0-0.2) Segmented Neutrophils % 80 % (35-66) Band Neutrophils % 12 % (0-9) Lymphocytes % 7 % (24-48) Monocytes % 1 % (0-10) Toxic Vacuolation Present Platelet Estimate Adequate (ADEQUATE) Prothrombin Time 14.0 SEC (11.7-14.0) Prothromb Time International Ratio 1.1 (0.8-1.1) Activated Partial Thromboplast Time 25 SEC (24-38) Sodium Level 139 mmol/L (136-145) 140 mmol/L (136-145) Potassium Level 4.0 mmol/L (3.5-5.1) 4.2 mmol/L (3.5-5.1) Chloride Level 104 mmol/L (98-107) 106 mmol/L (98-107) Carbon Dioxide Level 25 mmol/L (21-32) 24 mmol/L (21-32) Anion Gap 10 (6-14) 10 (6-14) Blood Urea Nitrogen 16 mg/dL (8-26) 19 mg/dL (8-26) Creatinine 1.1 mg/dL (0.7-1.3) 1.3 mg/dL (0.7-1.3) Estimated GFR (Cockcroft-Gault) 65.8 54.3 BUN/Creatinine Ratio 15 (6-20) Glucose Level 192 mg/dL (70-99) 215 mg/dL (70-99) Lactic Acid Level 2.2 mmol/L (0.4-2.0) 2.6 mmol/L (0.4-2.0) Calcium Level 8.8 mg/dL (8.5-10.1) 8.0 mg/dL (8.5-10.1) Magnesium Level 1.6 mg/dL (1.8-2.4) Total Bilirubin 1.1 mg/dL (0.2-1.0) Aspartate Amino Transf (AST/SGOT) 19 U/L (15-37) Alanine Aminotransferase (ALT/SGPT) 25 U/L (16-63) Alkaline Phosphatase 97 U/L (46-116) Creatine Kinase 74 U/L (39-308) Creatine Kinase MB (Mass) 0.8 ng/mL (0.0-3.6) Creatine Kinase MB Relative Index % (0-4) Troponin I Quantitative < 0.017 ng/mL (0.000-0.055) CV-Wag-M-Type Natriuretic Peptide 259 pg/mL (0-124) Total Protein 6.2 g/dL (6.4-8.2) Albumin 3.2 g/dL (3.4-5.0) Albumin/Globulin Ratio 1.1 (1.0-1.7) Lipase 86 U/L (73-393) Procalcitonin 0.45 ng/mL (0.00-0.10) 9.80 ng/mL (0.00-0.10) Thyroid Stimulating Hormone (TSH) 0.664 uIU/mL (0.358-3.74) Influenza Type A Antigen Negative (NEGATIVE) Influenza Type B Antigen Negative (NEGATIVE) Test 12/01/19 07:32 12/01/19 11:30 12/01/19 11:52 12/01/19 16:22 Glucose (Fingerstick) 154 mg/dL (70-99) 173 mg/dL (70-99) 152 mg/dL (70-99) Lactic Acid Level 1.2 mmol/L (0.4-2.0) Test 12/01/19 20:47 12/02/19 04:15 12/02/19 11:15 Glucose (Fingerstick) 201 mg/dL (70-99) White Blood Count 8.7 x10^3/uL (4.0-11.0) Red Blood Count 3.75 x10^6/uL (4.30-5.70) Hemoglobin 12.1 g/dL (13.0-17.5) Hematocrit 35.7 % (39.0-53.0) Mean Corpuscular Volume 95 fL (79-100) Mean Corpuscular Hemoglobin 32 pg (25-35) Mean Corpuscular Hemoglobin Concent 34 g/dL (31-37) Red Cell Distribution Width 13.2 % (11.5-14.5) Platelet Count 121 x10^3/uL (140-400) Neutrophils (%) (Auto) 78 % (31-73) Lymphocytes (%) (Auto) 13 % (24-48) Monocytes (%) (Auto) 9 % (0-9) Eosinophils (%) (Auto) 0 % (0-3) Basophils (%) (Auto) 0 % (0-3) Neutrophils # (Auto) 6.8 x10^3/uL (1.8-7.7) Lymphocytes # (Auto) 1.1 x10^3/uL (1.0-4.8) Monocytes # (Auto) 0.7 x10^3/uL (0.0-1.1) Eosinophils # (Auto) 0.0 x10^3/uL (0.0-0.7) Basophils # (Auto) 0.0 x10^3/uL (0.0-0.2) Urine Collection Type Unknown Urine Color Yellow Urine Clarity Clear Urine pH 5.0 Urine Specific [place] 1.020 Urine Protein Negative mg/dL (NEG-TRACE) Urine Glucose (UA) 250 mg/dL (NEG) Urine Ketones (Stick) Negative mg/dL (NEG) Urine Blood Negative (NEG) Urine Nitrite Negative (NEG) Urine Bilirubin Negative (NEG) Urine Urobilinogen Dipstick 0.2 mg/dL (0.2 mg/dL) Urine Leukocyte Esterase Trace (NEG) Urine RBC 0 /HPF (0-2) Urine WBC 5-10 /HPF (0-4) Urine Squamous Epithelial Cells Occ /LPF Urine Bacteria Few /HPF (0-FEW) Urine Mucus Slight /LPF Urine Opiates Screen Neg (NEG) Urine Methadone Screen Neg (NEG) Urine Barbiturates Neg (NEG) Urine Phencyclidine Screen Neg (NEG) Urine Amphetamine/Methamphetamine Neg (NEG) Urine Benzodiazepines Screen Neg (NEG) Urine Cocaine Screen Neg (NEG) Urine Cannabinoids Screen Neg (NEG) Urine Ethyl Alcohol Neg (NEG) Laboratory Tests Test 12/01/19 16:22 12/01/19 20:47 12/02/19 04:15 12/02/19 11:15 Glucose (Fingerstick) 152 mg/dL (70-99) 201 mg/dL (70-99) White Blood Count 8.7 x10^3/uL (4.0-11.0) Red Blood Count 3.75 x10^6/uL (4.30-5.70) Hemoglobin 12.1 g/dL (13.0-17.5) Hematocrit 35.7 % (39.0-53.0) Mean Corpuscular Volume 95 fL (79-100) Mean Corpuscular Hemoglobin 32 pg (25-35) Mean Corpuscular Hemoglobin Concent 34 g/dL (31-37) Red Cell Distribution Width 13.2 % (11.5-14.5) Platelet Count 121 x10^3/uL (140-400) Neutrophils (%) (Auto) 78 % (31-73) Lymphocytes (%) (Auto) 13 % (24-48) Monocytes (%) (Auto) 9 % (0-9) Eosinophils (%) (Auto) 0 % (0-3) Basophils (%) (Auto) 0 % (0-3) Neutrophils # (Auto) 6.8 x10^3/uL (1.8-7.7) Lymphocytes # (Auto) 1.1 x10^3/uL (1.0-4.8) Monocytes # (Auto) 0.7 x10^3/uL (0.0-1.1) Eosinophils # (Auto) 0.0 x10^3/uL (0.0-0.7) Basophils # (Auto) 0.0 x10^3/uL (0.0-0.2) Urine Collection Type Unknown Urine Color Yellow Urine Clarity Clear Urine pH 5.0 Urine Specific Finley 1.020 Urine Protein Negative mg/dL (NEG-TRACE) Urine Glucose (UA) 250 mg/dL (NEG) Urine Ketones (Stick) Negative mg/dL (NEG) Urine Blood Negative (NEG) Urine Nitrite Negative (NEG) Urine Bilirubin Negative (NEG) Urine Urobilinogen Dipstick 0.2 mg/dL (0.2 mg/dL) Urine Leukocyte Esterase Trace (NEG) Urine RBC 0 /HPF (0-2) Urine WBC 5-10 /HPF (0-4) Urine Squamous Epithelial Cells Occ /LPF Urine Bacteria Few /HPF (0-FEW) Urine Mucus Slight /LPF Urine Opiates Screen Neg (NEG) Urine Methadone Screen Neg (NEG) Urine Barbiturates Neg (NEG) Urine Phencyclidine Screen Neg (NEG) Urine Amphetamine/Methamphetamine Neg (NEG) Urine Benzodiazepines Screen Neg (NEG) Urine Cocaine Screen Neg (NEG) Urine Cannabinoids Screen Neg (NEG) Urine Ethyl Alcohol Neg (NEG) Microbiology 11/30/19 Blood Culture - Final, Complete Medications Current Medications Sodium Chloride 1,000 ml @ 1,000 mls/hr Q1H IV Last administered on 12/01/19at 04:00; Start 11/30/19 at 21:00; Stop 11/30/19 at 23:10; Status DC Ondansetron HCl (Zofran) 4 mg 1X ONCE IVP Last administered on 11/30/19at 21:30; Start 11/30/19 at 21:00; Stop 11/30/19 at 21:01; Status DC Famotidine (Pepcid Vial) 20 mg 1X ONCE IVP Last administered on 11/30/19at 21:30; Start 11/30/19 at 21:00; Stop 11/30/19 at 21:01; Status DC Ondansetron HCl (Zofran) 4 mg PRN Q8HRS PRN IV NAUSEA/VOMITING 1ST CHOICE; Start 11/30/19 at 22:00; Stop 12/01/19 at 21:59; Status DC Acetaminophen (Tylenol) 650 mg PRN Q4HRS PRN PO FEVER; Start 11/30/19 at 22:00; Stop 12/01/19 at 21:59; Status DC Sodium Chloride 1,000 ml @ 125 mls/hr 1X ONCE IV Last administered on 11/30/19at 22:30; Start 11/30/19 at 22:30; Stop 12/01/19 at 06:29; Status DC Levofloxacin/ Dextrose 100 ml @ 100 mls/hr 1X ONCE IV Last administered on 12/01/19at 00:32; Start 11/30/19 at 23:15; Stop 12/01/19 at 00:14; Status DC Iohexol (Omnipaque 300 Mg/ml) 75 ml 1X ONCE IV Last administered on 11/30/19at 23:52; Start 11/30/19 at 23:45; Stop 11/30/19 at 23:46; Status DC Info (CONTRAST GIVEN -- Rx MONITORING) 1 each PRN DAILY PRN MC SEE COMMENTS; Start 11/30/19 at 23:30; Stop 12/02/19 at 23:29 Timolol Maleate (Timoptic 0.5% [facility]) 1 drop DAILY OU Last administered on 12/02/19at 09:47; Start 12/01/19 at 12:00 Triamcinolone Acetonide (Kenalog 0.1%) 1 maryam BID TP Last administered on 12/02/19at 08:33; Start 12/01/19 at 12:00 Magnesium Oxide (Magnesium Oxide) 400 mg DAILY PO Last administered on 12/02/19at 08:33; Start 12/01/19 at 11:00 Magnesium Sulfate 50 ml @ 25 mls/hr 1X ONCE IV Last administered on 12/01/19at 11:30; Start 12/01/19 at 11:30; Stop 12/01/19 at 13:29; Status DC Vancomycin HCl (Vanco Per Pharmacy) 1 each PRN DAILY PRN MC SEE COMMENTS; Start 12/01/19 at 12:45; Stop 12/01/19 at 13:04; Status DC Levofloxacin/ Dextrose 100 ml @ 100 mls/hr Q24H IV ; Start 12/01/19 at 23:00; Stop 12/01/19 at 13:11; Status DC Vancomycin HCl 2 gm/Sodium Chloride 500 ml @ 250 mls/hr 1X ONCE IV ; Start 12/01/19 at 13:00; Stop 12/01/19 at 13:06; Status DC Cefepime HCl (Maxipime) 1 gm Q12HR IVP Last administered on 12/02/19at 09:47; Start 12/01/19 at 13:30 Lactobacillus Rhamnosus (Culturelle) 1 cap BID PO Last administered on 12/02/19at 08:33; Start 12/01/19 at 21:00 Insulin Glargine (Lantus Syringe) 24 unit QHS SQ Last administered on 12/01/19at 21:22; Start 12/01/19 at 21:00 Insulin Human Lispro (HumaLOG) 0-9 UNITS TIDWMEALS SQ ; Start 12/01/19 at 17:00 Dextrose (Dextrose 50%-Water Syringe) 12.5 gm PRN Q15MIN PRN IV SEE COMMENTS; Start 12/01/19 at 17:00 Dextrose (Iv Dextrose 5%) 250 ml PRN Q15MIN PRN IV SEE COMMENTS; Start 12/01/19 at 17:00 Acetaminophen (Tylenol) 650 mg PRN Q6HRS PRN PO fever Last administered on 12/02/19at 00:53; Start 12/02/19 at 00:45 Active Scripts Active Reported Cialis (Tadalafil) 5 Mg Tablet 5 Mg PO DAILY Victoza 3-Shay (Liraglutide) 0.6 Mg/0.1 Ml Pen.injctr 1.8 Mg SQ DAILY Triamcinolone Acetonide 0.1% Oint (Triamcinolone Acetonide) 15 Gm Oint...g. 1 Maryam TP BID MIX WITH EUCERIN DIRECTED BY PHYSICIAN Timoptic 0.5% (Timolol Maleate) 10 Ml Drops 1 Drop EACHEYE DAILY 30 Days Lisinopril 5 Mg Tablet 10 Mg PO DAILY Clotrimazole 15 Gm Cream..g. 1 Maryam TP DAILY Calcium (Calcium Carbonate) 500 Mg Tablet 500 Mg PO TID Atorvastatin Calcium 20 Mg Tablet 80 Mg PO HS Levemir (Insulin Detemir) 100 Unit/1 Ml Vial 1 Unit SQ HS Novolog (Insulin Aspart) 100 Unit/1 Ml Vial 100 Unit SQ TIDWMEALS Triamterene-Hctz 37.5-25 Mg Cp (Triamterene/Hydrochlorothiazid) 1 Each Capsule 1 Cap PO DAILY Magnesium (Magnesium Oxide) 400 Mg Capsule 400 Mg PO DAILY07 Vitals/I & O Vital Sign - Last 24 Hours 12/01/19 12/01/19 12/01/19 12/01/19 15:00 19:00 19:33 23:00 Temp 97.9 97.2 100.4 97.9 97.2 100.4 Pulse 84 80 83 Resp 19 18 18 B/P (MAP) 144/72 (96) 148/64 (92) 145/83 (103) Pulse Ox 96 96 93 O2 Delivery Room Air Room Air 12/02/19 12/02/19 12/02/19 12/02/19 03:00 07:00 08:05 10:50 Temp 99.3 98.1 98.0 99.3 98.1 98.0 Pulse 75 67 69 Resp 20 17 17 B/P (MAP) 120/66 (84) 133/74 (93) 135/68 (90) Pulse Ox 95 95 95 O2 Delivery Room Air Room Air Room Air Intake and Output 12/01/19 12/01/19 12/02/19 15:00 23:00 07:00 Intake Total 600 ml 300 ml Output Total 550 ml 800 ml Balance 600 ml -250 ml -800 ml SEYMOUR ARTHUR MD Dec 02, 2019 14:00
[2019-12-02 15:00] VITALS: BP 142/70
[2019-12-02 19:00] VITALS: BP 140/65
[2019-12-02] MEDS: INSULIN GLARGINE SYRINGE. SQ SCH (21:04)
[2019-12-02 23:00] VITALS: BP 126/70
[2019-12-03 03:00] VITALS: BP 130/69
[2019-12-03 07:00] VITALS: BP 155/86
[2019-12-03] MEDS: INSULIN LISPRO 300 UNITS/3 ML VIAL. SQ SCH ×3 (07:43→17:00)
[2019-12-03] MEDS: CEFEPIME HCL IV Push 1 GM VIAL. IVP SCH (09:16)
[2019-12-03] MEDS: LACTOBACILLUS RHAMNOSUS GG 1 CAPSULE. PO SCH ×2 (09:16→21:00)
[2019-12-03] MEDS: TIMOLOL 0.5% OPHTH SOLUTION 5ML BOTTLE. OU SCH (09:16)
[2019-12-03] MEDS: MAGNESIUM OXIDE 400 MG TABLET PO SCH (09:16)
[2019-12-03] MEDS: TRIAMCINOLONE ACETONIDE 0.1% TOPICAL OINTMENT 15GM TUBE. TP SCH ×2 (09:18→21:00)
--- NOTE | 2019-12-03 10:40 | PDOC ---
Infectious Disease Note Subjective: Subjective pt without complaints mild headache no f/c/n/v/d/gu symptoms Vital Signs: Vital Signs Vital Signs Date Time Temp Pulse Resp B/P (MAP) Pulse Ox O2 Delivery O2 Flow Rate FiO2 12/03/19 07:00 97.8 74 18 155/86 (109) 98 Room Air 97.8 Physical Exam: PHYSICAL EXAM GENERAL: The patient is propped up in bed, alert, in no apparent distress. HEENT: Pupils equally round and reactive. Normal conjunctivae. Oropharynx pink and moist. NECK: Supple. LUNGS: Clear to auscultation. HEART: S1, S2. ABDOMEN: Morbidly obese, soft, nontender with bowel sounds present. EXTREMITIES: No gross edema or cyanosis. SKIN: Warm to touch without signs of rash.scalp lesions stable NEUROLOGIC: Alert and oriented x 3. Medications: Inpatient Meds: Current Medications Medications (Trade) Dose Ordered Sig/Salo Start Time Stop Time Status Last Admin Dose Admin Acetaminophen (Tylenol) 650 mg PRN Q6HRS PRN 12/02/19 00:45 12/02/19 00:53 650 MG Cefepime HCl (Maxipime) 1 gm Q12HR 12/01/19 13:30 12/03/19 09:16 1 GM Dextrose (Dextrose 50%-Water Syringe) 12.5 gm PRN Q15MIN PRN 12/01/19 17:00 Dextrose (Iv Dextrose 5%) 250 ml PRN Q15MIN PRN 12/01/19 17:00 Famotidine (Pepcid Vial) 20 mg 1X ONCE 11/30/19 21:00 11/30/19 21:01 DC 11/30/19 21:30 20 MG Info (CONTRAST GIVEN -- Rx MONITORING) 1 each PRN DAILY PRN 11/30/19 23:30 12/02/19 23:29 DC Insulin Glargine (Lantus Syringe) 24 unit QHS 12/01/19 21:00 12/02/19 21:04 24 UNIT Insulin Human Lispro (HumaLOG) 0-9 UNITS TIDWMEALS 12/01/19 17:00 12/02/19 17:13 4 UNITS Iohexol (Omnipaque 300 Mg/ml) 75 ml 1X ONCE 11/30/19 23:45 11/30/19 23:46 DC 11/30/19 23:52 75 ML Lactobacillus Rhamnosus (Culturelle) 1 cap BID 12/01/19 21:00 12/03/19 09:16 1 CAP Levofloxacin/ Dextrose 100 ml @ 100 mls/hr Q24H 12/01/19 23:00 12/01/19 13:11 DC Magnesium Oxide (Magnesium Oxide) 400 mg DAILY 12/01/19 11:00 12/03/19 09:16 400 MG Magnesium Sulfate 50 ml @ 25 mls/hr 1X ONCE 12/01/19 11:30 12/01/19 13:29 DC 12/01/19 11:30 25 MLS/HR Ondansetron HCl (Zofran) 4 mg PRN Q8HRS PRN 11/30/19 22:00 12/01/19 21:59 DC Sodium Chloride 1,000 ml @ 125 mls/hr 1X ONCE 11/30/19 22:30 12/01/19 06:29 DC 11/30/19 22:30 125 MLS/HR Timolol Maleate (Timoptic 0.5% [facility]) 1 drop DAILY 12/01/19 12:00 12/03/19 09:16 1 DROP Triamcinolone Acetonide (Kenalog 0.1%) 1 thuy BID 12/01/19 12:00 12/03/19 09:18 1 THUY Vancomycin HCl (Vanco Per Pharmacy) 1 each PRN DAILY PRN 12/01/19 12:45 12/01/19 13:04 DC Vancomycin HCl 2 gm/Sodium Chloride 500 ml @ 250 mls/hr 1X ONCE 12/01/19 13:00 12/01/19 13:06 DC Labs: Lab Laboratory Tests Test 12/02/19 11:11 12/02/19 11:15 12/02/19 15:57 12/02/19 20:25 Glucose (Fingerstick) 150 mg/dL (70-99) 180 mg/dL (70-99) 190 mg/dL (70-99) Urine Collection Type Unknown Urine Color Yellow Urine Clarity Clear Urine pH 5.0 Urine Specific [place] 1.020 Urine Protein Negative mg/dL (NEG-TRACE) Urine Glucose (UA) 250 mg/dL (NEG) Urine Ketones (Stick) Negative mg/dL (NEG) Urine Blood Negative (NEG) Urine Nitrite Negative (NEG) Urine Bilirubin Negative (NEG) Urine Urobilinogen Dipstick 0.2 mg/dL (0.2 mg/dL) Urine Leukocyte Esterase Trace (NEG) Urine RBC 0 /HPF (0-2) Urine WBC 5-10 /HPF (0-4) Urine Squamous Epithelial Cells Occ /LPF Urine Bacteria Few /HPF (0-FEW) Urine Mucus Slight /LPF Urine Opiates Screen Neg (NEG) Urine Methadone Screen Neg (NEG) Urine Barbiturates Neg (NEG) Urine Phencyclidine Screen Neg (NEG) Urine Amphetamine/Methamphetamine Neg (NEG) Urine Benzodiazepines Screen Neg (NEG) Urine Cocaine Screen Neg (NEG) Urine Cannabinoids Screen Neg (NEG) Urine Ethyl Alcohol Neg (NEG) Test 12/03/19 07:25 Glucose (Fingerstick) 130 mg/dL (70-99) Objective: Assessment: 1. Gram-negative francoise sepsis present on admission. Qustionable source ID pending 2. Abdominal pain. 3. Leukocytosis.improving 4. Antibiotic allergy to penicillin, reaction unknown. 5. Lactic acidosis. 6. Acute encephalopathy, improved. 7. Diabetes type 2. 8. Morbid obesity. 9. Hypertension. 10. Skin cancer. 11. Cat exposure. 2. Thrombocytopenia 13 Pyuria Plan: Plan of Care DC Cefepime start merrem pending final id and pierre of anaerobic gnr in Await GNR ID and susceptibilities in f/u cults and labs d/w KENDRA MORAN MD Dec 03, 2019 10:40
[2019-12-03 11:00] VITALS: BP 142/72
[2019-12-03] MEDS: ACETAMINOPHEN 325 MG TABLET. PO PRN (11:29)
[2019-12-03] MEDS: MEROPENEM 500 MG in IV NORMAL SALINE 50ML 50 ML IV SCH ×3 (11:30→23:48)
--- NOTE | 2019-12-03 12:37 | PDOC ---
PROGRESS NOTES Chief Complaint Chief Complaint ASSESSMENT Gram-negative francoise sepsis present on admission, unclear source Leukocytosis Antibiotic allergy to penicillin, reaction unknown. Lactic acidosis. Acute encephalopathy, resolved Diabetes type 2. Morbid obesity. Hypertension. Skin cancer. Cat exposure. Thrombocytopenia PLAN dc cefepime, start merram per ID apprec ID follow cultures follow repeat cultures dvt ppx prn ativan for agitation History of Present Illness History of Present Illness agitated overnight and given ativan and haldol. VSS Vitals Vitals Vital Signs Date Time Temp Pulse Resp B/P (MAP) Pulse Ox O2 Delivery O2 Flow Rate FiO2 12/03/19 11:00 97.8 72 18 142/72 (95) 98 Room Air 97.8 Physical Exam Physical Exam GENERAL: The patient is propped up in bed, alert, in no apparent distress. HEENT: Pupils equally round and reactive. Normal conjunctivae. Oropharynx pink and moist. NECK: Supple. LUNGS: Clear to auscultation. HEART: S1, S2. ABDOMEN: Morbidly obese, soft, nontender with bowel sounds present. EXTREMITIES: No gross edema or cyanosis. SKIN: Warm to touch without signs of rash.scalp lesions stable NEUROLOGIC: Alert and oriented x 3. General: Alert, Oriented X3, Cooperative, No acute distress Abdomen: Normal bowel sounds, Soft, Other (OBESE) Extremities: No clubbing, No cyanosis, Other (5 BX SITES ON SCALP) Labs LABS Laboratory Tests Test 12/02/19 15:57 12/02/19 20:25 12/03/19 07:25 12/03/19 11:08 Glucose (Fingerstick) 180 mg/dL (70-99) 190 mg/dL (70-99) 130 mg/dL (70-99) 155 mg/dL (70-99) Assessment and Plan Assessmemt and Plan Problems Medical Problems: (1) Altered mental status Status: Acute (2) Elevated lactic acid level Status: Acute Comment Review of Relevant I have reviewed the following items rudy (where applicable) has been applied. Labs Laboratory Tests Test 12/01/19 16:22 12/01/19 20:47 12/02/19 04:15 12/02/19 07:33 Glucose (Fingerstick) 152 mg/dL (70-99) 201 mg/dL (70-99) 139 mg/dL (70-99) White Blood Count 8.7 x10^3/uL (4.0-11.0) Red Blood Count 3.75 x10^6/uL (4.30-5.70) Hemoglobin 12.1 g/dL (13.0-17.5) Hematocrit 35.7 % (39.0-53.0) Mean Corpuscular Volume 95 fL (79-100) Mean Corpuscular Hemoglobin 32 pg (25-35) Mean Corpuscular Hemoglobin Concent 34 g/dL (31-37) Red Cell Distribution Width 13.2 % (11.5-14.5) Platelet Count 121 x10^3/uL (140-400) Neutrophils (%) (Auto) 78 % (31-73) Lymphocytes (%) (Auto) 13 % (24-48) Monocytes (%) (Auto) 9 % (0-9) Eosinophils (%) (Auto) 0 % (0-3) Basophils (%) (Auto) 0 % (0-3) Neutrophils # (Auto) 6.8 x10^3/uL (1.8-7.7) Lymphocytes # (Auto) 1.1 x10^3/uL (1.0-4.8) Monocytes # (Auto) 0.7 x10^3/uL (0.0-1.1) Eosinophils # (Auto) 0.0 x10^3/uL (0.0-0.7) Basophils # (Auto) 0.0 x10^3/uL (0.0-0.2) Test 12/02/19 11:11 12/02/19 11:15 12/02/19 15:57 12/02/19 20:25 Glucose (Fingerstick) 150 mg/dL (70-99) 180 mg/dL (70-99) 190 mg/dL (70-99) Urine Collection Type Unknown Urine Color Yellow Urine Clarity Clear Urine pH 5.0 Urine Specific [place] 1.020 Urine Protein Negative mg/dL (NEG-TRACE) Urine Glucose (UA) 250 mg/dL (NEG) Urine Ketones (Stick) Negative mg/dL (NEG) Urine Blood Negative (NEG) Urine Nitrite Negative (NEG) Urine Bilirubin Negative (NEG) Urine Urobilinogen Dipstick 0.2 mg/dL (0.2 mg/dL) Urine Leukocyte Esterase Trace (NEG) Urine RBC 0 /HPF (0-2) Urine WBC 5-10 /HPF (0-4) Urine Squamous Epithelial Cells Occ /LPF Urine Bacteria Few /HPF (0-FEW) Urine Mucus Slight /LPF Urine Opiates Screen Neg (NEG) Urine Methadone Screen Neg (NEG) Urine Barbiturates Neg (NEG) Urine Phencyclidine Screen Neg (NEG) Urine Amphetamine/Methamphetamine Neg (NEG) Urine Benzodiazepines Screen Neg (NEG) Urine Cocaine Screen Neg (NEG) Urine Cannabinoids Screen Neg (NEG) Urine Ethyl Alcohol Neg (NEG) Test 12/03/19 07:25 12/03/19 11:08 Glucose (Fingerstick) 130 mg/dL (70-99) 155 mg/dL (70-99) Laboratory Tests Test 12/02/19 15:57 12/02/19 20:25 12/03/19 07:25 12/03/19 11:08 Glucose (Fingerstick) 180 mg/dL (70-99) 190 mg/dL (70-99) 130 mg/dL (70-99) 155 mg/dL (70-99) Microbiology 12/01/19 Blood Culture - Preliminary, Resulted NO GROWTH AFTER 1 DAY Medications Current Medications Sodium Chloride 1,000 ml @ 1,000 mls/hr Q1H IV Last administered on 12/01/19at 04:00; Start 11/30/19 at 21:00; Stop 11/30/19 at 23:10; Status DC Ondansetron HCl (Zofran) 4 mg 1X ONCE IVP Last administered on 11/30/19at 21:30; Start 11/30/19 at 21:00; Stop 11/30/19 at 21:01; Status DC Famotidine (Pepcid Vial) 20 mg 1X ONCE IVP Last administered on 11/30/19at 21:3 0; Start 11/30/19 at 21:00; Stop 11/30/19 at 21:01; Status DC Ondansetron HCl (Zofran) 4 mg PRN Q8HRS PRN IV NAUSEA/VOMITING 1ST CHOICE; Start 11/30/19 at 22:00; Stop 12/01/19 at 21:59; Status DC Acetaminophen (Tylenol) 650 mg PRN Q4HRS PRN PO FEVER; Start 11/30/19 at 22:00; Stop 12/01/19 at 21:59; Status DC Sodium Chloride 1,000 ml @ 125 mls/hr 1X ONCE IV Last administered on 11/30/19at 22:30; Start 11/30/19 at 22:30; Stop 12/01/19 at 06:29; Status DC Levofloxacin/ Dextrose 100 ml @ 100 mls/hr 1X ONCE IV Last administered on 12/01/19at 00:32; Start 11/30/19 at 23:15; Stop 12/01/19 at 00:14; Status DC Iohexol (Omnipaque 300 Mg/ml) 75 ml 1X ONCE IV Last administered on 11/30/19at 23:52; Start 11/30/19 at 23:45; Stop 11/30/19 at 23:46; Status DC Info (CONTRAST GIVEN -- Rx MONITORING) 1 each PRN DAILY PRN MC SEE COMMENTS; Start 11/30/19 at 23:30; Stop 12/02/19 at 23:29; Status DC Timolol Maleate (Timoptic 0.5% [facility]) 1 drop DAILY OU Last administered on 12/03/19at 09:16; Start 12/01/19 at 12:00 Triamcinolone Acetonide (Kenalog 0.1%) 1 maryam BID TP Last administered on 12/03/19at 09:18; Start 12/01/19 at 12:00 Magnesium Oxide (Magnesium Oxide) 400 mg DAILY PO Last administered on 12/03/19at 09:16; Start 12/01/19 at 11:00 Magnesium Sulfate 50 ml @ 25 mls/hr 1X ONCE IV Last administered on 12/01/19at 11:30; Start 12/01/19 at 11:30; Stop 12/01/19 at 13:29; Status DC Vancomycin HCl (Vanco Per Pharmacy) 1 each PRN DAILY PRN MC SEE COMMENTS; Start 12/01/19 at 12:45; Stop 12/01/19 at 13:04; Status DC Levofloxacin/ Dextrose 100 ml @ 100 mls/hr Q24H IV ; Start 12/01/19 at 23:00; Stop 12/01/19 at 13:11; Status DC Vancomycin HCl 2 gm/Sodium Chloride 500 ml @ 250 mls/hr 1X ONCE IV ; Start 12/01/19 at 13:00; Stop 12/01/19 at 13:06; Status DC Cefepime HCl (Maxipime) 1 gm Q12HR IVP Last administered on 12/03/19at 09:16; Start 12/01/19 at 13:30; Stop 12/03/19 at 10:41; Status DC Lactobacillus Rhamnosus (Culturelle) 1 cap BID PO Last administered on 12/03/19at 09:16; Start 12/01/19 at 21:00 Insulin Glargine (Lantus Syringe) 24 unit QHS SQ Last administered on 12/02/19at 21:04; Start 12/01/19 at 21:00 Insulin Human Lispro (HumaLOG) 0-9 UNITS TIDWMEALS SQ Last administered on 12/02/19at 17:13; Start 12/01/19 at 17:00 Dextrose (Dextrose 50%-Water Syringe) 12.5 gm PRN Q15MIN PRN IV SEE COMMENTS; Start 12/01/19 at 17:00 Dextrose (Iv Dextrose 5%) 250 ml PRN Q15MIN PRN IV SEE COMMENTS; Start 12/01/19 at 17:00 Acetaminophen (Tylenol) 650 mg PRN Q6HRS PRN PO fever Last administered on 12/03/19at 11:29; Start 12/02/19 at 00:45 Meropenem 500 mg/ Sodium Chloride 50 ml @ 100 mls/hr Q6HRS IV Last administered on 12/03/19at 11:30; Start 12/03/19 at 12:00 Active Scripts Active Reported Cialis (Tadalafil) 5 Mg Tablet 5 Mg PO DAILY Victoza 3-Shay (Liraglutide) 0.6 Mg/0.1 Ml Pen.injctr 1.8 Mg SQ DAILY Triamcinolone Acetonide 0.1% Oint (Triamcinolone Acetonide) 15 Gm Oint...g. 1 Maryam TP BID MIX WITH EUCERIN DIRECTED BY PHYSICIAN Timoptic 0.5% (Timolol Maleate) 10 Ml Drops 1 Drop EACHEYE DAILY 30 Days Lisinopril 5 Mg Tablet 10 Mg PO DAILY Clotrimazole 15 Gm Cream..g. 1 Maryam TP DAILY Calcium (Calcium Carbonate) 500 Mg Tablet 500 Mg PO TID Atorvastatin Calcium 20 Mg Tablet 80 Mg PO HS Levemir (Insulin Detemir) 100 Unit/1 Ml Vial 1 Unit SQ HS Novolog (Insulin Aspart) 100 Unit/1 Ml Vial 100 Unit SQ TIDWMEALS Triamterene-Hctz 37.5-25 Mg Cp (Triamterene/Hydrochlorothiazid) 1 Each Capsule 1 Cap PO DAILY Magnesium (Magnesium Oxide) 400 Mg Capsule 400 Mg PO DAILY07 Vitals/I & O Vital Sign - Last 24 Hours 12/02/19 12/02/19 12/02/19 12/02/19 15:00 19:00 20:00 23:00 Temp 97.9 98.0 98.1 97.9 98.0 98.1 Pulse 67 68 67 Resp 17 18 18 B/P (MAP) 142/70 (94) 140/65 (90) 126/70 (88) Pulse Ox 95 96 95 O2 Delivery Room Air Room Air Room Air Room Air 12/03/19 12/03/19 12/03/19 12/03/19 03:00 07:00 08:00 11:00 Temp 98.0 97.8 97.8 98.0 97.8 97.8 Pulse 68 74 72 Resp 16 18 18 B/P (MAP) 130/69 (89) 155/86 (109) 142/72 (95) Pulse Ox 94 98 98 O2 Delivery Room Air Room Air Room Air Room Air Intake and Output 12/02/19 12/02/19 12/03/19 15:00 23:00 07:00 Intake Total 600 ml 450 ml 300 ml Output Total 650 ml 1100 ml 800 ml Balance -50 ml -650 ml -500 ml SEYMOUR ARTHUR MD Dec 03, 2019 12:37
--- NOTE | 2019-12-03 12:45 | NUR ---
SW following. Discussed with RN. Currently on IV meropenem. PT recommending home independent when medically stable. RN advised no SW needs at this time.
[2019-12-03 15:01] VITALS: BP 138/74
[2019-12-03 19:00] VITALS: BP 158/64
[2019-12-03] MEDS: INSULIN GLARGINE SYRINGE. SQ SCH (21:06)
[2019-12-03 23:00] VITALS: BP 164/75
[2019-12-03] MEDS ORDERED: SEMA1PEN SQ (23:55)
[2019-12-04 03:00] VITALS: BP 155/82
[2019-12-04] MEDS: MEROPENEM 500 MG in IV NORMAL SALINE 50ML 50 ML IV SCH ×3 (06:12→17:35)
[2019-12-04 07:00] VITALS: BP 150/70
[2019-12-04] MEDS: INSULIN LISPRO 300 UNITS/3 ML VIAL. SQ SCH ×3 (07:59→16:59)
[2019-12-04] MEDS: LACTOBACILLUS RHAMNOSUS GG 1 CAPSULE. PO SCH ×2 (10:12→21:45)
[2019-12-04] MEDS: MAGNESIUM OXIDE 400 MG TABLET PO SCH (10:12)
[2019-12-04] MEDS: TRIAMCINOLONE ACETONIDE 0.1% TOPICAL OINTMENT 15GM TUBE. TP SCH ×2 (10:13→21:45)
[2019-12-04] MEDS: TIMOLOL 0.5% OPHTH SOLUTION 5ML BOTTLE. OU SCH (10:13)
[2019-12-04 10:42] VITALS: BP 156/86
--- NOTE | 2019-12-04 11:31 | PDOC ---
Infectious Disease Note Subjective: Subjective pt without complaints mild headache no f/c/n/v/d/gu symptoms Vital Signs: Vital Signs Vital Signs Date Time Temp Pulse Resp B/P (MAP) Pulse Ox O2 Delivery O2 Flow Rate FiO2 12/04/19 10:42 98.4 71 18 156/86 (109) 93 Room Air 98.4 Physical Exam: PHYSICAL EXAM GENERAL: The patient is propped up in bed, alert, in no apparent distress. HEENT: Pupils equally round and reactive. Normal conjunctivae. Oropharynx pink and moist. NECK: Supple. LUNGS: Clear to auscultation. HEART: S1, S2. ABDOMEN: Morbidly obese, soft, nontender with bowel sounds present. EXTREMITIES: No gross edema or cyanosis. SKIN: Warm to touch without signs of rash.scalp lesions stable NEUROLOGIC: Alert and oriented x 3. Medications: Inpatient Meds: Current Medications Medications (Trade) Dose Ordered Sig/Salo Start Time Stop Time Status Last Admin Dose Admin Acetaminophen (Tylenol) 650 mg PRN Q6HRS PRN 12/02/19 00:45 12/03/19 11:29 650 MG Cefepime HCl (Maxipime) 1 gm Q12HR 12/01/19 13:30 12/03/19 10:41 DC 12/03/19 09:16 1 GM Dextrose (Dextrose 50%-Water Syringe) 12.5 gm PRN Q15MIN PRN 12/01/19 17:00 Dextrose (Iv Dextrose 5%) 250 ml PRN Q15MIN PRN 12/01/19 17:00 Famotidine (Pepcid Vial) 20 mg 1X ONCE 11/30/19 21:00 11/30/19 21:01 DC 11/30/19 21:30 20 MG Info (CONTRAST GIVEN -- Rx MONITORING) 1 each PRN DAILY PRN 11/30/19 23:30 12/02/19 23:29 DC Insulin Glargine (Lantus Syringe) 24 unit QHS 12/01/19 21:00 12/03/19 21:06 24 UNIT Insulin Human Lispro (HumaLOG) 0-9 UNITS TIDWMEALS 12/01/19 17:00 12/02/19 17:13 4 UNITS Iohexol (Omnipaque 300 Mg/ml) 75 ml 1X ONCE 11/30/19 23:45 11/30/19 23:46 DC 11/30/19 23:52 75 ML Lactobacillus Rhamnosus (Culturelle) 1 cap BID 12/01/19 21:00 12/04/19 10:12 1 CAP Levofloxacin/ Dextrose 100 ml @ 100 mls/hr Q24H 12/01/19 23:00 12/01/19 13:11 DC Magnesium Oxide (Magnesium Oxide) 400 mg DAILY 12/01/19 11:00 12/04/19 10:12 400 MG Magnesium Sulfate 50 ml @ 25 mls/hr 1X ONCE 12/01/19 11:30 12/01/19 13:29 DC 12/01/19 11:30 25 MLS/HR Meropenem 500 mg/ Sodium Chloride 50 ml @ 100 mls/hr Q6HRS 12/03/19 12:00 12/04/19 06:12 100 MLS/HR Ondansetron HCl (Zofran) 4 mg PRN Q8HRS PRN 11/30/19 22:00 12/01/19 21:59 DC Sodium Chloride 1,000 ml @ 125 mls/hr 1X ONCE 11/30/19 22:30 12/01/19 06:29 DC 11/30/19 22:30 125 MLS/HR Timolol Maleate (Timoptic 0.5% [facility]) 1 drop DAILY 12/01/19 12:00 12/04/19 10:13 1 DROP Triamcinolone Acetonide (Kenalog 0.1%) 1 thuy BID 12/01/19 12:00 12/04/19 10:13 1 THUY Vancomycin HCl (Vanco Per Pharmacy) 1 each PRN DAILY PRN 12/01/19 12:45 12/01/19 13:04 DC Vancomycin HCl 2 gm/Sodium Chloride 500 ml @ 250 mls/hr 1X ONCE 12/01/19 13:00 12/01/19 13:06 DC Labs: Lab Laboratory Tests Test 12/03/19 16:59 12/03/19 20:31 12/04/19 07:47 12/04/19 11:09 Glucose (Fingerstick) 113 mg/dL (70-99) 173 mg/dL (70-99) 124 mg/dL (70-99) 156 mg/dL (70-99) Objective: Assessment: 1. Gram-negative francoise sepsis present on admission. Qustionable source ID pending 2. Abdominal pain. 3. Leukocytosis.improving 4. Antibiotic allergy to penicillin, reaction unknown. 5. Lactic acidosis. 6. Acute encephalopathy, improved. 7. Diabetes type 2. 8. Morbid obesity. 9. Hypertension. 10. Skin cancer. 11. Cat exposure. 2. Thrombocytopenia 13 Pyuria Plan: Plan of Care cont june was on cefepime Await GNR ID and susceptibilities in f/u cults and labs d/w KENDRA MORAN MD Dec 04, 2019 11:31
[2019-12-04] MEDS: ACETAMINOPHEN 325 MG TABLET. PO PRN (11:59)
--- NOTE | 2019-12-04 12:59 | NUR ---
SW following. Discussed with RN, awaiting final cultures to determine abx. SW will continue to follow.
[2019-12-04 14:33] VITALS: BP 142/90
--- NOTE | 2019-12-04 15:00 | PDOC ---
PROGRESS NOTES Chief Complaint Chief Complaint ASSESSMENT Gram-negative francoise sepsis present on admission, unclear source Leukocytosis Antibiotic allergy to penicillin, reaction unknown. Lactic acidosis. Acute encephalopathy, resolved Diabetes type 2. Morbid obesity. Hypertension. Skin cancer. Cat exposure. Thrombocytopenia PLAN dcd cefepime, start merram per ID apprec ID follow cultures follow repeat cultures dvt ppx prn ativan for agitation History of Present Illness History of Present Illness no issues overnight. awaiting culture ID Vitals Vitals Vital Signs Date Time Temp Pulse Resp B/P (MAP) Pulse Ox O2 Delivery O2 Flow Rate FiO2 12/04/19 14:33 98.4 68 22 142/90 (107) 95 Room Air 98.4 Physical Exam Physical Exam GENERAL: The patient is propped up in bed, alert, in no apparent distress. HEENT: Pupils equally round and reactive. Normal conjunctivae. Oropharynx pink and moist. NECK: Supple. LUNGS: Clear to auscultation. HEART: S1, S2. ABDOMEN: Morbidly obese, soft, nontender with bowel sounds present. EXTREMITIES: No gross edema or cyanosis. SKIN: Warm to touch without signs of rash.scalp lesions stable NEUROLOGIC: Alert and oriented x 3. General: Alert, Oriented X3, Cooperative, No acute distress Abdomen: Normal bowel sounds, Soft, Other (OBESE) Extremities: No clubbing, No cyanosis, Other (5 BX SITES ON SCALP) Labs LABS Laboratory Tests Test 12/03/19 16:59 12/03/19 20:31 12/04/19 07:47 12/04/19 11:09 Glucose (Fingerstick) 113 mg/dL (70-99) 173 mg/dL (70-99) 124 mg/dL (70-99) 156 mg/dL (70-99) Assessment and Plan Assessmemt and Plan Problems Medical Problems: (1) Altered mental status Status: Acute (2) Elevated lactic acid level Status: Acute Comment Review of Relevant I have reviewed the following items rudy (where applicable) has been applied. Labs Laboratory Tests Test 12/02/19 15:57 12/02/19 20:25 12/03/19 07:25 12/03/19 11:08 Glucose (Fingerstick) 180 mg/dL (70-99) 190 mg/dL (70-99) 130 mg/dL (70-99) 155 mg/dL (70-99) Test 12/03/19 16:59 12/03/19 20:31 12/04/19 07:47 12/04/19 11:09 Glucose (Fingerstick) 113 mg/dL (70-99) 173 mg/dL (70-99) 124 mg/dL (70-99) 156 mg/dL (70-99) Laboratory Tests Test 12/03/19 16:59 12/03/19 20:31 12/04/19 07:47 12/04/19 11:09 Glucose (Fingerstick) 113 mg/dL (70-99) 173 mg/dL (70-99) 124 mg/dL (70-99) 156 mg/dL (70-99) Microbiology 12/01/19 Blood Culture - Preliminary, Resulted NO GROWTH AFTER 2 DAYS Medications Current Medications Sodium Chloride 1,000 ml @ 1,000 mls/hr Q1H IV Last administered on 12/01/19at 04:00; Start 11/30/19 at 21:00; Stop 11/30/19 at 23:10; Status DC Ondansetron HCl (Zofran) 4 mg 1X ONCE IVP Last administered on 11/30/19at 21:30; Start 11/30/19 at 21:00; Stop 11/30/19 at 21:01; Status DC Famotidine (Pepcid Vial) 20 mg 1X ONCE IVP Last administered on 11/30/19at 21:30; Start 11/30/19 at 21:00; Stop 11/30/19 at 21:01; Status DC Ondansetron HCl (Zofran) 4 mg PRN Q8HRS PRN IV NAUSEA/VOMITING 1ST CHOICE; Start 11/30/19 at 22:00; Stop 12/01/19 at 21:59; Status DC Acetaminophen (Tylenol) 650 mg PRN Q4HRS PRN PO FEVER; Start 11/30/19 at 22:00; Stop 12/01/19 at 21:59; Status DC Sodium Chloride 1,000 ml @ 125 mls/hr 1X ONCE IV Last administered on 11/30/19at 22:30; Start 11/30/19 at 22:30; Stop 12/01/19 at 06:29; Status DC Levofloxacin/ Dextrose 100 ml @ 100 mls/hr 1X ONCE IV Last administered on 12/01/19at 00:32; Start 11/30/19 at 23:15; Stop 12/01/19 at 00:14; Status DC Iohexol (Omnipaque 300 Mg/ml) 75 ml 1X ONCE IV Last administered on 11/30/19at 23:52; Start 11/30/19 at 23:45; Stop 11/30/19 at 23:46; Status DC Info (CONTRAST GIVEN -- Rx MONITORING) 1 each PRN DAILY PRN MC SEE COMMENTS; Start 11/30/19 at 23:30; Stop 12/02/19 at 23:29; Status DC Timolol Maleate (Timoptic 0.5% [facility]) 1 drop DAILY OU Last administered on 12/04/19at 10:13; Start 12/01/19 at 12:00 Triamcinolone Acetonide (Kenalog 0.1%) 1 thuy BID TP Last administered on 12/04/19 10:13; Start 12/01/19 at 12:00 Magnesium Oxide (Magnesium Oxide) 400 mg DAILY PO Last administered on 12/04/19at 10:12; Start 12/01/19 at 11:00 Magnesium Sulfate 50 ml @ 25 mls/hr 1X ONCE IV Last administered on 12/01/19at 11:30; Start 12/01/19 at 11:30; Stop 12/01/19 at 13:29; Status DC Vancomycin HCl (Vanco Per Pharmacy) 1 each PRN DAILY PRN MC SEE COMMENTS; Start 12/01/19 at 12:45; Stop 12/01/19 at 13:04; Status DC Levofloxacin/ Dextrose 100 ml @ 100 mls/hr Q24H IV ; Start 12/01/19 at 23:00; Stop 12/01/19 at 13:11; Status DC Vancomycin HCl 2 gm/Sodium Chloride 500 ml @ 250 mls/hr 1X ONCE IV ; Start 12/01/19 at 13:00; Stop 12/01/19 at 13:06; Status DC Cefepime HCl (Maxipime) 1 gm Q12HR IVP Last administered on 12/03/19at 09:16; Start 12/01/19 at 13:30; Stop 12/03/19 at 10:41; Status DC Lactobacillus Rhamnosus (Culturelle) 1 cap BID PO Last administered on 12/04/19at 10:12; Start 12/01/19 at 21:00 Insulin Glargine (Lantus Syringe) 24 unit QHS SQ Last administered on 12/03/19at 21:06; Start 12/01/19 at 21:00 Insulin Human Lispro (HumaLOG) 0-9 UNITS TIDWMEALS SQ Last administered on 12/04/19at 11:54; Start 12/01/19 at 17:00 Dextrose (Dextrose 50%-Water Syringe) 12.5 gm PRN Q15MIN PRN IV SEE COMMENTS; Start 12/01/19 at 17:00 Dextrose (Iv Dextrose 5%) 250 ml PRN Q15MIN PRN IV SEE COMMENTS; Start 12/01/19 at 17:00 Acetaminophen (Tylenol) 650 mg PRN Q6HRS PRN PO fever Last administered on 12/04/19at 11:59; Start 12/02/19 at 00:45 Meropenem 500 mg/ Sodium Chloride 50 ml @ 100 mls/hr Q6HRS IV Last administered on 12/04/19at 11:46; Start 12/03/19 at 12:00 Active Scripts Active Reported Ozempic (Semaglutide) 1 Mg/0.75 Ml Pen.injctr 5 Mg SQ QWE Cialis (Tadalafil) 5 Mg Tablet 5 Mg PO DAILY Triamcinolone Acetonide 0.1% Oint (Triamcinolone Acetonide) 15 Gm Oint...g. 1 Thuy TP BID MIX WITH EUCERIN DIRECTED BY PHYSICIAN Timoptic 0.5% (Timolol Maleate) 10 Ml Drops 1 Drop EACHEYE DAILY 30 Days Lisinopril 5 Mg Tablet 10 Mg PO DAILY Clotrimazole 15 Gm Cream..g. 1 Thuy TP DAILY Calcium (Calcium Carbonate) 500 Mg Tablet 500 Mg PO TID Atorvastatin Calcium 20 Mg Tablet 80 Mg PO HS Levemir (Insulin Detemir) 100 Unit/1 Ml Vial 1 Unit SQ HS Novolog (Insulin Aspart) 100 Unit/1 Ml Vial 100 Unit SQ TIDWMEALS Triamterene-Hctz 37.5-25 Mg Cp (Triamterene/Hydrochlorothiazid) 1 Each Capsule 1 Cap PO DAILY Magnesium (Magnesium Oxide) 400 Mg Capsule 400 Mg PO DAILY07 Vitals/I & O Vital Sign - Last 24 Hours 12/03/19 12/03/19 12/03/19 12/03/19 15:01 19:00 19:50 23:00 Temp 97.8 97.7 98.7 97.8 97.7 98.7 Pulse 70 70 66 Resp 18 18 B/P (MAP) 138/74 (95) 158/64 (95) 164/75 (104) Pulse Ox 98 99 94 O2 Delivery Room Air Room Air Room Air Room Air 12/04/19 12/04/19 12/04/19 12/04/19 03:00 07:00 08:10 10:42 Temp 97.9 98.9 98.4 97.9 98.9 98.4 Pulse 75 67 71 Resp 18 18 18 B/P (MAP) 155/82 (106) 150/70 (96) 156/86 (109) Pulse Ox 96 93 93 O2 Delivery Room Air Room Air Room Air Room Air 12/04/19 14:33 Temp 98.4 98.4 Pulse 68 Resp 22 B/P (MAP) 142/90 (107) Pulse Ox 95 O2 Delivery Room Air Intake and Output 12/03/19 12/03/19 12/04/19 15:00 23:00 07:00 Intake Total 600 ml 500 ml 400 ml Output Total 700 ml 1250 ml 600 ml Balance -100 ml -750 ml -200 ml SEYMOUR ARTHUR MD Dec 04, 2019 15:00
[2019-12-04 19:00] VITALS: BP 140/80
[2019-12-04] MEDS: INSULIN GLARGINE SYRINGE. SQ SCH (21:50)
[2019-12-04 23:00] VITALS: BP 127/66
[2019-12-05] MEDS: MEROPENEM 500 MG in IV NORMAL SALINE 50ML 50 ML IV SCH ×3 (00:15→12:00)
[2019-12-05 03:00] VITALS: BP 136/72
[2019-12-05 07:00] VITALS: BP 137/88
[2019-12-05] MEDS: INSULIN LISPRO 300 UNITS/3 ML VIAL. SQ SCH ×2 (08:00→12:00)
--- NOTE | 2019-12-05 09:04 | PDOC ---
Infectious Disease Note Subjective: Subjective pt without complaints mild headache no f/c/n/v/d/gu symptoms Vital Signs: Vital Signs Vital Signs Date Time Temp Pulse Resp B/P (MAP) Pulse Ox O2 Delivery O2 Flow Rate FiO2 12/05/19 07:30 Room Air 12/05/19 07:00 98.2 84 16 137/88 (104) 97 98.2 Physical Exam: PHYSICAL EXAM GENERAL: The patient is propped up in bed, alert, in no apparent distress. HEENT: Pupils equally round and reactive. Normal conjunctivae. Oropharynx pink and moist. NECK: Supple. LUNGS: Clear to auscultation. HEART: S1, S2. ABDOMEN: Morbidly obese, soft, nontender with bowel sounds present. EXTREMITIES: No gross edema or cyanosis. SKIN: Warm to touch without signs of rash.scalp lesions stable NEUROLOGIC: Alert and oriented x 3. Medications: Inpatient Meds: Current Medications Medications (Trade) Dose Ordered Sig/Salo Start Time Stop Time Status Last Admin Dose Admin Acetaminophen (Tylenol) 650 mg PRN Q6HRS PRN 12/02/19 00:45 12/04/19 11:59 650 MG Cefepime HCl (Maxipime) 1 gm Q12HR 12/01/19 13:30 12/03/19 10:41 DC 12/03/19 09:16 1 GM Dextrose (Dextrose 50%-Water Syringe) 12.5 gm PRN Q15MIN PRN 12/01/19 17:00 Dextrose (Iv Dextrose 5%) 250 ml PRN Q15MIN PRN 12/01/19 17:00 Famotidine (Pepcid Vial) 20 mg 1X ONCE 11/30/19 21:00 11/30/19 21:01 DC 11/30/19 21:30 20 MG Info (CONTRAST GIVEN -- Rx MONITORING) 1 each PRN DAILY PRN 11/30/19 23:30 12/02/19 23:29 DC Insulin Glargine (Lantus Syringe) 24 unit QHS 12/01/19 21:00 12/04/19 21:50 24 UNIT Insulin Human Lispro (HumaLOG) 0-9 UNITS TIDWMEALS 12/01/19 17:00 12/04/19 16:59 4 UNITS Iohexol (Omnipaque 300 Mg/ml) 75 ml 1X ONCE 11/30/19 23:45 11/30/19 23:46 DC 11/30/19 23:52 75 ML Lactobacillus Rhamnosus (Culturelle) 1 cap BID 12/01/19 21:00 12/04/19 21:45 1 CAP Levofloxacin/ Dextrose 100 ml @ 100 mls/hr Q24H 12/01/19 23:00 12/01/19 13:11 DC Magnesium Oxide (Magnesium Oxide) 400 mg DAILY 12/01/19 11:00 12/04/19 10:12 400 MG Magnesium Sulfate 50 ml @ 25 mls/hr 1X ONCE 12/01/19 11:30 12/01/19 13:29 DC 12/01/19 11:30 25 MLS/HR Meropenem 500 mg/ Sodium Chloride 50 ml @ 100 mls/hr Q6HRS 12/03/19 12:00 12/05/19 05:38 100 MLS/HR Ondansetron HCl (Zofran) 4 mg PRN Q8HRS PRN 11/30/19 22:00 12/01/19 21:59 DC Sodium Chloride 1,000 ml @ 125 mls/hr 1X ONCE 11/30/19 22:30 12/01/19 06:29 DC 11/30/19 22:30 125 MLS/HR Timolol Maleate (Timoptic 0.5% [facility]) 1 drop DAILY 12/01/19 12:00 12/04/19 10:13 1 DROP Triamcinolone Acetonide (Kenalog 0.1%) 1 thuy BID 12/01/19 12:00 12/04/19 21:45 1 THUY Vancomycin HCl (Vanco Per Pharmacy) 1 each PRN DAILY PRN 12/01/19 12:45 12/01/19 13:04 DC Vancomycin HCl 2 gm/Sodium Chloride 500 ml @ 250 mls/hr 1X ONCE 12/01/19 13:00 12/01/19 13:06 DC Labs: Lab Laboratory Tests Test 12/04/19 11:09 12/04/19 16:29 12/04/19 20:28 12/05/19 06:57 Glucose (Fingerstick) 156 mg/dL (70-99) 178 mg/dL (70-99) 155 mg/dL (70-99) 119 mg/dL (70-99) Objective: Assessment: 1. E coli sepsis 2. Abdominal pain. 3. Leukocytosis.improving 4. Antibiotic allergy to penicillin, reaction unknown. 5. Lactic acidosis. 6. Acute encephalopathy, improved. 7. Diabetes type 2. 8. Morbid obesity. 9. Hypertension. 10. Skin cancer. 11. Cat exposure. 2. Thrombocytopenia 13 Pyuria UC neg Plan: Plan of Care [facility] to [place] home on cefdinir 300 mg po bid for 10 days probiotics d/w KENDRA MORAN MD Dec 05, 2019 09:04
[2019-12-05] MEDS: MAGNESIUM OXIDE 400 MG TABLET PO SCH (09:17)
[2019-12-05] MEDS: LACTOBACILLUS RHAMNOSUS GG 1 CAPSULE. PO SCH (09:17)
[2019-12-05] MEDS: TIMOLOL 0.5% OPHTH SOLUTION 5ML BOTTLE. OU SCH (09:18)
[2019-12-05] MEDS: TRIAMCINOLONE ACETONIDE 0.1% TOPICAL OINTMENT 15GM TUBE. TP SCH (09:18)
--- NOTE | 2019-12-05 09:27 | NUR ---
SW following. Discussed with RN. Final sensitivities are back, pt can discharge home with self care on oral cefdinir. RN advised no SW needs.
[2019-12-05] MEDS ORDERED: CEFD300C PO (10:04)
--- NOTE | 2019-12-05 10:09 | PDOC3 ---
Discharge Summary Visit Information Date of Admission: Nov 30, 2019 Date of Discharge: Dec 05, 2019 Final Diagnosis Problems Medical Problems: (1) Altered mental status Status: Acute (2) Elevated lactic acid level Status: Acute Brief Hospital Course Allergies Allergies Coded Allergies Type Severity Reaction Last Updated Verified Penicillins Allergy Severe Shortness of Air 12/01/19 Yes Vital Signs GENERAL: No apparent distress. Alert and oriented. HEENT: Head normocephalic, atraumatic. NECK: Supple LUNGS: Clear to auscultation. HEART: RRR, S1, S2 present, pulses intact ABDOMEN: Soft, positive bowel sounds. EXTREMITIES: No cyanosis or edema. NEUROLOGIC: Normal speech, normal tone PSYCHIATRIC: Normal affect, normal mood. SKIN: No ulceration. Vital Signs Date Time Temp Pulse Resp B/P (MAP) Pulse Ox O2 Delivery O2 Flow Rate FiO2 12/05/19 07:30 Room Air 12/05/19 07:00 98.2 84 16 137/88 (104) 97 98.2 Lab Results Laboratory Tests Test 12/03/19 11:08 12/03/19 16:59 12/03/19 20:31 12/04/19 07:47 Glucose (Fingerstick) 155 mg/dL (70-99) 113 mg/dL (70-99) 173 mg/dL (70-99) 124 mg/dL (70-99) Test 12/04/19 11:09 12/04/19 16:29 12/04/19 20:28 12/05/19 06:57 Glucose (Fingerstick) 156 mg/dL (70-99) 178 mg/dL (70-99) 155 mg/dL (70-99) 119 mg/dL (70-99) Laboratory Tests Test 12/04/19 11:09 12/04/19 16:29 12/04/19 20:28 12/05/19 06:57 Glucose (Fingerstick) 156 mg/dL (70-99) 178 mg/dL (70-99) 155 mg/dL (70-99) 119 mg/dL (70-99) Brief Hospital Course 74-year-old male with apast medical history of morbid obesity, skin cancer, and type 2 diabetes, whopresented to the ER with abdominal pain, nausea, and altered mental status. He recalls feeling suddenly hot, could not walk and his glucose level was found liz low. On arrival to the ER, he was afebrile with a normal WBC count. Lacticacid was 2.2 and glucose 192. Abdominal/pelvis CT showed mild wall thickening of the urinary bladder, could be secondary to mhypertrophy. No acute findings. Urinalysis has been ordered. Blood cultures have since returned with Gram-negative rods in 2 of 4 bottles The patient says he has a history of skin cancer and had a few lesions, burn on his scalp area recently. He denies fevers or chills. He has some nasal congestion. Denies headache, sore throat. Denies cough, shortness of air, or chest discomfort. He has been a little bit constipated, but had a bowel movement earlier. He denies dysuria, frequency, or straining. He is currently living with his girlfriend. He has had a number of cats and is now down to 7. He says they have licked his wound. He denies antibiotic use or hospitalizations within the last several months. admitted by hospitalist service ASSESSMENT Gram-negative francoise sepsis present on admission, unclear source Leukocytosis Antibiotic allergy to penicillin, reaction unknown. Lactic acidosis. Acute encephalopathy, resolved Diabetes type 2. Morbid obesity. Hypertension. Skin cancer. Cat exposure. Thrombocytopenia PLAN placed on cefepime then switched to merram per ID blood cultures drawn and showed strauss senstive e coli. patient will be discharged on cefdinir 300 po BID for 10 days he we will discharged 12/05/19 in stable condition. Discharge Information Condition at Discharge: Stable Follow Up: Weeks (PCP in 4 weeks ) Disposition/Orders: D/C to Home Scheduled Atorvastatin Calcium (Atorvastatin Calcium) 20 Mg Tablet, 80 MG PO HS for FOR CHOLESTEROL, #30 Ref 0 (Reported) Entered as Reported by: NICK HERNÁNDEZ on 12/01/19540 Last Action: HELD on 12/01/191114 by MICHOACANO VALDIVIA MD Calcium Carbonate (Calcium) 500 Mg Tablet, 500 MG PO TID for supplement, (Reported) Entered as Reported by: NICK HERNÁNDEZ on 12/01/19540 Last Action: HELD on 12/01/191114 by MICHOACANO VALDIVIA MD Cefdinir (Cefdinir) 300 Mg Capsule, 1 CAP PO BID for sepsis for 10 Days, #20 Prescribed by: SEYMOUR ARTHUR MD on 12/05/191003 Clotrimazole (Clotrimazole) 15 Gm Cream..g., 1 ALIREZA TP DAILY for topical, #45 (Reported) Entered as Reported by: NICK HERNÁNDEZ on 12/01/19540 Last Action: HELD on 12/01/191114 by MICHOACANO VALDIVIA MD Insulin Aspart (Novolog) 100 Unit/1 Ml Vial, 100 UNIT SQ TIDWMEALS for diabetes, (Reported) Entered as Reported by: BALBINA RDZ on 06/10/19611 Last Action: HELD on 12/01/191114 by MICHOACANO VALDIVIA MD Insulin Detemir (Levemir) 100 Unit/1 Ml Vial, 1 UNIT SQ HS for diabetes, (Reported) Entered as Reported by: BALBINA RDZ on 06/10/19611 Last Action: HELD on 12/01/191114 by MICHOACANO VALDIVIA MD Lisinopril (Lisinopril) 5 Mg Tablet, 10 MG PO DAILY for FOR HYPERTENSION, #30 Ref 0 (Reported) Entered as Reported by: NICK HERNÁNDEZ on 12/01/19540 Last Action: HELD on 12/01/191114 by MICHOACANO VALDIVIA MD Magnesium Oxide (Magnesium) 400 Mg Capsule, 400 MG PO DAILY07 for supplement, (Reported) Entered as Reported by: BALBINA RDZ on 06/10/19611 Last Action: Converted on 12/01/191114 by MICHOACANO VALDIVIA MD Semaglutide (Ozempic) 1 Mg/0.75 Ml Pen.injctr, 5 MG SQ QWE for fsbs, (Reported) Entered as Reported by: KAR WYATT on 12/03/192354 Last Action: New Order on 12/03/192354 by KAR WYATT Tadalafil (Cialis) 5 Mg Tablet, 5 MG PO DAILY for BPh, (Reported) Entered as Reported by: NICK HERNÁNDEZ on 12/01/19540 Last Action: HELD on 12/01/191114 by MICHOACANO VALDIVIA MD Timolol Maleate 0.5% (Timoptic 0.5%) 10 Ml Drops, 1 DROP EACHEYE DAILY for glaucoma for 30 Days, #5 Ref 0 (Reported) Entered as Reported by: NICK HERNÁNDEZ on 12/01/19540 Last Action: Continued on 12/01/191114 by MICHOACANO VALDIVIA MD Triamcinolone Acetonide (Triamcinolone Acetonide 0.1% Oint) 15 Gm Oint...g., 1 ALIREZA TP BID for WOUND CARE, #1 (Reported) MIX WITH EUCERIN DIRECTED BY PHYSICIAN Entered as Reported by: NICK HERNÁNDEZ on 12/01/19540 Last Action: Continued on 12/01/191114 by MICHOACANO VALDIVIA MD Triamterene/Hydrochlorothiazid (Triamterene-Hctz 37.5-25 Mg Cp) 1 Each Capsule, 1 CAP PO DAILY for hypertension, #30 Ref 5 (Reported) Entered as Reported by: BALBINA RDZ on 06/10/19611 Last Action: HELD on 12/01/191114 by MICHOACANO VALDIVIA MD Discontinued Medications Atorvastatin Calcium (Atorvastatin Calcium) 40 Mg Tablet, 1 TAB PO DAILY for high cholesterol, #30 Ref 5 (Reported) Discontinued Reason: Prescription changed Entered as Reported by: BALBINA RDZ on 06/10/19611 Garlic (Garlic) 1,000 Mg Capsule, 1,000 MG PO DAILY07 for supplement, (Reported) Entered as Reported by: BALBINA RDZ on 06/10/19611 Last Action: Discontinued on 12/01/19540 by NICK HERNÁNDEZ Lactobacillus Acidophilus (Probiotic) 1 Each Capsule, 1 EACH PO DAILY07 for SB strains, (Reported) Entered as Reported by: BALBINA RDZ on 06/10/19611 Last Action: Discontinued on 12/01/19540 by NICK HERNÁNDEZ Liraglutide (Victoza 3-Shay) 0.6 Mg/0.1 Ml Pen.injctr, 1.8 MG SQ DAILY for DM type 2, (Reported) Entered as Reported by: NICK HERNÁNDEZ on 12/01/19540 Last Action: Discontinued on 12/03/192354 by SEYMOUR ALVARADO MD Dec 05, 2019 10:09
[2019-12-05 11:00] VITALS: BP 159/90
--- NOTE | 2019-12-05 12:47 | NUR ---
Discharge Note: RENETTA CARDENAS J5 [facility] Discharge instructions and discharge home medications reviewed with Patient and a copy given. All questions have been answered and understanding verbalized. The following instructions and handouts were given: discharge instructions, new prescription, education and follow up recommendations. Discontinued lines and drains: Peripheral IV discontinued intact. Patient discharged to Home or Self Care with Friend via Wheelchair off unit by RN.
== END 2019-12-05 13:00 | disposition home or self-care (01) | DRG 871 ==
LOC: ER 20:06 → 5 SOUTH 21:50
PROVIDERS: ADMIT Family Medicine; ATTEND Family Medicine
DX: A41.51 Sepsis due to Escherichia coli [E. coli] (principal); G93.41 Metabolic encephalopathy; C44.90 Unspecified malignant neoplasm of skin, unspecified; D69.6 Thrombocytopenia, unspecified; E11.51 Type 2 diabetes mellitus with diabetic peripheral angiopathy without gangrene; E66.01 Morbid (severe) obesity due to excess calories; E78.5 Hyperlipidemia, unspecified; E83.42 Hypomagnesemia; I10 Essential (primary) hypertension; K59.00 Constipation, unspecified; N28.1 Cyst of kidney, acquired; Z82.49 Family history of ischemic heart disease and other diseases of the circulatory system; Z85.828 Personal history of other malignant neoplasm of skin; Z88.0 Allergy status to penicillin; Z88.1 Allergy status to other antibiotic agents; Z68.32 Body mass index [BMI] 32.0-32.9, adult
CPT/HCPCS: 36415; 70450; 71045; 74177; 80048; 80053; 80307; 81001; 82553; 82962; 83605; 83690; 83735; 83880; 84145; 84443; 84484; 85007; 85025; 85610; 85730; 87040; 87077; 87205; 87804; 93005; 99285; J0692; J1815; J1956; J2185; J2405; J3475; J3490; J7030; Q9967; 97110; G0378

== ENCOUNTER → 2020-06-30 | Outpatient (CLI) | payer MEDICARE, OTHER ==
[~2020-06-30] MED LIST changes: +ATOR20TA58 PO; +CALC500T30 PO; +CEFD300C PO; +CLOT15CR23 TP; +IOHEXOL 350 MG/ML 100 ML VIAL. IV ONE; +LIRA0.6P2 SQ; +LISI-338 PO; +SEMA1PEN SQ; +TADA5TAB PO; +TIMO10DR5 EACHEYE; +TRIA15OI TP
[2020-06-30 08:41] LABS: CREATININE 1.3 mg/dL (0.7-1.3); GFR 54.3
--- NOTE | 2020-06-30 11:02 | RAD ---
EXAM: CT Angiography of the Abdomen and Pelvis INDICATION: Reason: Erectile dysfunction / Spl. Instructions: IV OMNI 350 80 MLS / History: TECHNIQUE: CT angiography of the abdomen and pelvis was performed with intravenous contrast. Vascular 3D images were generated on a dedicated workstation and reviewed. All CT scans performed at this facility utilize dose optimization techniques as appropriate to the exam, including the following: Automated exposure control and adjustment of the mA and/or KV according to patient size (this includes techniques or standardized protocols for targeted exams where dose is indication/reason for exam). Neither pharmacologic nor nonpharmacologic methods of augmenting penile blood flow were utilized for this examination. IV CONTRAST: Administered COMPARISON: Contrast-enhanced abdomen and pelvis CT of 11/30/2019 FINDINGS: VASCULAR FINDINGS: Scattered arterial calcifications. Abdominal Aorta and Branches: Celiac axis: No significant stenosis. SMA: No significant stenosis. ZAID: No significant stenosis. Right renal vessels: No significant stenosis. There is an accessory right renal artery perfusing the inferior pole right kidney which arises just below the inferior mesenteric artery at the anterior midline of the abdominal aorta, approximately 4 cm above the aortic bifurcation. Left renal vessels: No significant stenosis. There is an accessory left renal artery perfusing the inferior pole left kidney arising from the left aspect of the abdominal aorta 6 mm below the origin of the ZAID (and 6 mm above the origin of the right accessory renal artery). Infrarenal aorta: No significant stenosis or aneurysm. Pelvic Vessels: R. Common iliac artery: No significant stenosis. R. External iliac artery: No significant stenosis. R. Internal iliac artery: No significant stenosis. L. Common iliac artery: No significant stenosis. L. External iliac artery: No significant stenosis. L. Internal iliac artery: No significant stenosis. Right Lower Extremity: R. Common femoral artery: No significant stenosis. R. Profunda femoris artery: No significant stenosis in the visualized portion. R. SFA: No significant stenosis in the visualized portion. Left Lower Extremity: L. Common femoral artery: No significant stenosis. L. Profunda femoris artery: No significant stenosis in the visualized portion. L. SFA: No significant stenosis in the visualized portion. Bilaterally, the internal pudendal arteries are identified arising from the internal iliac artery and following the expected course behind and around the iliac spines, reentering the pelvis through the ischiorectal fossae to terminate at the cavernosal arteries. The right internal pudendal artery is better seen. NON VASCULAR FINDINGS: Partially exophytic right midpole 3.7 cm cyst with rim calcification. This does not require any additional imaging follow-up. Collapsed urinary bladder. There is hypertrophy of the extraperitoneal pelvic fat, resulting in mild transverse narrowing of the urinary bladder in the empty state. Lumbar spinal degenerative change most conspicuous at the lumbosacral junction where combination of disc ossification and facet hypertrophy results in moderate to severe bilateral foraminal stenosis. IMPRESSION: Normal variation to abdominal arterial anatomy and showing scattered atherosclerotic calcifications but no findings suggesting large vessel occlusion or high-grade stenosis. The bilateral internal pudendal arteries are identified, right greater than left. Patient was not imaged during penile erection, which can limit detailed evaluation. Electronically signed by: Radha Anthony MD (06/30/2020 10:59 AM) [id number]
--- NOTE | 2020-06-30 16:15 | CARD ---
MR#: [id number] Date of Study: 06/30/2020 Ordering Physician: RYLAN MILNER, Referring Physician: RYLAN MILNER, Tech: Marjan Freeman APPROVED REPORT EXAM: Two-dimensional and M-mode echocardiogram with Doppler and color Doppler. Other Information Quality : AverageHR: 67bpm INDICATION Hypertension/HCVD RISK FACTORS Diabetes 2D DIMENSIONS RVDd3.8 (2.9-3.5cm)Left Atrium(2D)3.3 (1.6-4.0cm) IVSd0.9 (0.7-1.1cm)Aortic Root(2D)3.2 (2.0-3.7cm) LVDd4.0 (3.9-5.9cm)LVOT Diameter2.0 (1.8-2.4cm) PWd0.8 (0.7-1.1cm)LVDs2.4 (2.5-4.0cm) FS (%) 41.0 %SV51.0 ml Aortic Valve AoV Peak Uvaldo.157.9cm/sAoV VTI27.5cm AO Peak GR.10.0mmHgLVOT Peak Uvaldo.92.9cm/s LVOT VTI 18.42cmAO Mean GR.5mmHg ASHLEY (VMAX)1.52jz2ZUZ (VTI)2.11cm2 Mitral Valve MV E Yclkrlii10.0cm/sMV DECEL DYED877lj MV A Gkuuiqhj61.0cm/sMV E Mean Gr.1mmHg MV NNA14mvY/A Ratio0.8 MVA (PHT)2.38cm2 TDI E/Lateral E'6.3E/Medial E'8.0 Pulmonary Valve PV Peak Vpeydiet782.4cm/sPV Peak Grad.5mmHg Tricuspid Valve TR P. Hwrokrqx381pp/sRAP [id number] TR Peak Gr.98qiHqJYSF48poMl Pulmonary Vein S1 Cvfbcrgm38.3cm/sD2 Oisvsklu46.1cm/s PVa tompmula191zwzx LEFT VENTRICLE The left ventricle is normal size. There is normal left ventricular wall thickness. The left ventricu lar systolic function is normal and the ejection fraction is within normal range. The Ejection Fracti on is 55-60%. There is normal LV segmental wall motion. Transmitral Doppler flow pattern is Grade I-a bnormal relaxation pattern. RIGHT VENTRICLE The right ventricle is normal size. There is normal right ventricular wall thickness. The right ventr icular systolic function is normal. ATRIA The left atrium size is normal. The right atrium size is normal. The interatrial septum is intact wit h no evidence for an atrial septal defect or patent foramen ovale as noted on 2-D or Doppler imaging. AORTIC VALVE The aortic valve is calcified. Doppler and Color Flow revealed no significant aortic regurgitation. T here is no significant aortic valvular stenosis. Calculated aortic valve area is 2.08 cm2 with maximu m pressure gradient of 11 mmHg and mean pressure gradient of 5 mmHg. MITRAL VALVE The mitral valve is thickened but opens well. There is no evidence of mitral valve prolapse. There is no mitral valve stenosis. Doppler and Color-flow revealed trace mitral regurgitation. TRICUSPID VALVE The tricuspid valve is normal in structure and function. Doppler and Color Flow revealed trace tricus pid regurgitation with an estimated PAP of 21 mmHg. There is no tricuspid valve stenosis. PULMONIC VALVE The pulmonic valve is not well visualized. Doppler and Color Flow revealed no pulmonic valvular regur gitation. GREAT VESSELS The aortic root is normal in size. The ascending aorta is normal in size. The IVC is normal in size a nd collapses >50% with inspiration. PERICARDIAL EFFUSION There is no evidence of significant pericardial effusion. Critical Notification Critical Value: No <Conclusion> The left ventricle is normal size. The left ventricular systolic function is normal and the ejection fraction is within normal range. The Ejection Fraction is 55-60%. Doppler and Color Flow revealed no significant aortic regurgitation. There is no significant aortic valvular stenosis. Doppler and Color-flow revealed trace mitral regurgitation. Doppler and Color Flow revealed trace tricuspid regurgitation with an estimated PAP of 21 mmHg. Signed by : Isidoro Summers MD Electronically Approved : 06/30/2020 16:14:56
== END | disposition home or self-care (01) ==
LOC: CT 08:42
PROVIDERS: ATTEND Internal Medicine Cardiovascular Disease
DX: I35.1 Nonrheumatic aortic (valve) insufficiency (principal); N52.9 Male erectile dysfunction, unspecified; I25.10 Atherosclerotic heart disease of native coronary artery without angina pectoris; M47.817 Spondylosis without myelopathy or radiculopathy, lumbosacral region
CPT/HCPCS: 36415; 74174; 82565; 84520; 93306; Q9967